=== PATIENT | female | born 1945 | race Caucasian/White ===

== ENCOUNTER 2020-11-21 09:21 | Inpatient (IN) | payer MEDICARE, OTHER ==
[~2020-11-21] VITALS: Ht 154.9 cm; Wt 95.8 kg
[2020-11-21] VITALS (13 sets, daily range): BP systolic 119–194; BP diastolic 60–124
[2020-11-21] MEDS ORDERED: diphenhydrAMINE 25mg capsule PO PRN (09:45)
[2020-11-21 10:24] LABS: BASOPHILS % (AUTO) 0.6 % (0-1); EOSINOPHILS # (AUTO) 0.1 X10'3 (0-0.9); EOSINOPHILS % (AUTO) 2.6 % (0-6); HEMATOCRIT 34.5 % (35.0-45.0); HEMOGLOBIN 11.5 g/dl (12.0-16.0); LYMPHOCYTES # (AUTO) 0.8 X10'3 (1.1-4.8); LYMPHOCYTES % (AUTO) 21.9 % (21-51); MEAN CORPUSCULAR HEMOGLOBIN 30.7 PG (27.0-31.0); MEAN CORPUSCULAR HGB CONC 33.2 g/dL (33.0-36.5); MEAN CORPUSCULAR VOLUME 92.4 FL (78-98); MEAN PLATELET VOLUME 9.2 FL (7.4-10.4); MONOCYTES # (AUTO) 0.4 X10'3 (0-0.9); MONOCYTES % (AUTO) 10.6 % (2-12); NEUTROPHILS # (AUTO) 2.4 X10'3 (1.8-7.7); NEUTROPHILS % (AUTO) 64.3 % (42-75); PLATELET COUNT 144 X10'3 (140-440); RED BLOOD COUNT 3.74 X10'6 (4.20-5.60); RED CELL DISTRIBUTION WIDTH 15.9 % (11.5-14.5); WHITE BLOOD COUNT 3.7 X10'3 (4.5-11.0)
[2020-11-21] MEDS: normal saline 1,000 ML IV SCH ×2 (10:29→19:45)
[2020-11-21] MEDS ORDERED: ISOS60TA71 PO (10:36)
[2020-11-21] MEDS ORDERED: ASPI-1265 PO (10:36)
[2020-11-21] MEDS ORDERED: SODI650T29 PO (10:36)
[2020-11-21] MEDS ORDERED: LISI40TA13 PO (10:36)
[2020-11-21] MEDS ORDERED: NITR0.4T51 SL (10:36)
[2020-11-21] MEDS ORDERED: METO50TA7 PO (10:36)
[2020-11-21] MEDS ORDERED: FURO-150 PO (10:36)
[2020-11-21] MEDS ORDERED: HYDR200T84 PO (10:36)
[2020-11-21] MEDS ORDERED: LIDO700A32 TOP (10:36)
[2020-11-21] MEDS ORDERED: ADAL40PE SUBCUT (10:36)
[2020-11-21] MEDS ORDERED: ATOR40TA PO (10:36)
[2020-11-21] MEDS ORDERED: OMEP40CA21 PO (10:36)
[2020-11-21 10:37] LABS: ALBUMIN 3.6 G/DL (3.4-5.0); ANION GAP 8 (8-16); BLOOD UREA NITROGEN 23 MG/DL (7-18); BUN/CREATININE RATIO 17.2 (6.6-38.0); CHLORIDE 107 MMOL/L (99-107); CREATININE 1.34 MG/DL (0.40-0.90); GLUCOSE 109 MG/DL (70-104); POTASSIUM 4.8 MMOL/L (3.5-5.1); SODIUM 142 MMOL/L (135-145); eGFR 39 ML/MIN
[2020-11-21] MEDS ORDERED: fentaNYL/PF 50MCG/1 ML 2ML syringe ONE (12:20)
[2020-11-21] MEDS ORDERED: midazolam 1 mg/ML 2ml injection ONE ×2 (12:20→13:16)
[2020-11-21] MEDS ORDERED: proCHLORperazine 10 MG/2 ml inj ONE (12:20)
[2020-11-21] MEDS ORDERED: LIDOcaine 1% (10mg/ml)w/preservative injection 20ml MDV ONE (12:20)
[2020-11-21] MEDS ORDERED: iohexol 350 MG/1 ML 200ml bottle ONE (12:21)
[2020-11-21] MEDS ORDERED: iohexol 350 MG/ML 50ML vial IV ONE (12:21)
[2020-11-21] MEDS ORDERED: heparin 1,000unit/ml 10ml vial 10 ML ONE (12:21)
[2020-11-21] MEDS ORDERED: sodium bicarbonate (8.4%) inj. 150 ML in dextrose 5%-water 1,000 ML IV ONE (12:30)
[2020-11-21] MEDS ORDERED: clopidogrel 300mg tablet ONE (14:06)
[2020-11-21] MEDS ORDERED: HYDROcodone/acetaminophen 5mg/325mg tablet PO PRN (14:40)
[2020-11-21] MEDS ORDERED: HYDROcodone/acetaminophen 10/325mg tab PO PRN (14:40)
[2020-11-21] MEDS ORDERED: proCHLORperazine 10 MG/2 ml inj IV PRN (14:40)
[2020-11-21] MEDS ORDERED: ondansetron/PF 4mg/2ml inj IV PRN (14:40)
[2020-11-21] MEDS ORDERED: acetaminophen 325mg tablet PO PRN (14:40)
--- NOTE | 2020-11-21 16:00 | NUR ---
Called Dr. Camacho regarding patient's increase BP and HR. Most recent VS 194/104, HR 99. Received order for clonidine 0.2mg PO once.
[2020-11-21] MEDS ORDERED: cloNIDine 0.1 mg tablet PO ONE (16:15)
[2020-11-21] MEDS ORDERED: furosemide 20 MG/2 ML vial IV ONE (16:50)
[2020-11-21] MEDS ORDERED: nitroGLYCERIN 0.4mg SUBLingual tab SL PRN ×2 (16:50→22:40)
[2020-11-21] MEDS ORDERED: nitroGLYCERIN 0.4mg SUBLingual tab SL ONE (16:50)
[2020-11-21] MEDS ORDERED: furosemide 40mg/4ml inj ONE (16:51)
--- NOTE | 2020-11-21 17:00 | NUR ---
Checked on patient at 1630. At this time, Patient's RR in the 40's, BP 182/124, HR 102, diaphoretic, c/o sternal chest pain, lung sounds wheezy. Right groin procedure site CDI, no bleeding/hematoma. Femstop in place. Rapid response called, EKG taken. Blood glucose 175. WRAPPER SIZER, RT and nursing supervisor pumping at rapid response. Called Dr. Camacho and he arrived at 1650. Orders received for NTG and 20mg IV lasix. At 1655, BP 171/99, pt still c/o of some sternal chest pain. Another NTG given per Dr. Camacho. Orders to admit to ACCE.
--- NOTE | 2020-11-21 17:00 | NUR ---
Patient in room . I have received report from peñashort stay rn and had the opportunity to ask questions and assume patient care.
--- NOTE | 2020-11-21 17:15 | NUR ---
Report called to Renetta CAVAZOS. All questions answered. Patient taken up to ACCE 309. All belongings with patient on transfer. Tavo (patient's son) called and given update.
[2020-11-21] MEDS ORDERED: DOBUTamine-DoBUTrex 500mg/D5W 250 ML IV SCH (17:30)
--- NOTE | 2020-11-21 17:30 | NUR ---
received pt into room 309, oriented to surroundings, femstop in place to right groin no bleeding noted, pedal pulses present, bp=712/70 ,heart rate70, pt denies pain, using bedpan, call angelo in hand, pt aware need to lie flat until 7 pm
[2020-11-21] MEDS ORDERED: magnesium hydroxide 30ml (MOM) UD suspension PO PRN (18:05)
--- NOTE | 2020-11-21 18:15 | NUR ---
Patient in room MED 309. I have received report from DIRK Jackson and had the opportunity to ask questions and assume patient care.
--- NOTE | 2020-11-21 18:16 | NUR ---
Problems reprioritized. Patient report given, questions answered & plan of care reviewed with .katarzyna hercules
[2020-11-21] MEDS ORDERED: lisinopril 20mg tablet PO SCH (20:00)
[2020-11-21] MEDS ORDERED: metoprolol tartrate 25mg tablet PO SCH (20:00)
[2020-11-21] MEDS: aspirin 81mg tablet.DR PO SCH (21:05)
[2020-11-21] MEDS: docusate sod 100mg capsule PO SCH (21:06)
[2020-11-21] MEDS: enoxaparin 30mg/0.3ml syringe SQ SCH (21:08)
[2020-11-21] MEDS ORDERED: ADALIMUMAB 40 MG/0.8 ML SQ SCH (22:40)
[2020-11-22] VITALS: BP 159/66
[2020-11-22 02:00] VITALS: BP 120/45
[2020-11-22] MEDS: normal saline 1,000 ML IV SCH (05:45)
[2020-11-22 06:00] VITALS: BP 132/60
--- NOTE | 2020-11-22 06:20 | NUR ---
Patient in room MED 309. I have received report from DIRK FELTON and had the opportunity to ask questions and assume patient care.
[2020-11-22] MEDS ORDERED: pantoprazole 40mg Tablet.DR PO SCH (07:30)
[2020-11-22] MEDS ORDERED: LIDOcaine 5% patch TP SCH (08:00)
[2020-11-22] MEDS ORDERED: clopidogrel 75mg tablet PO SCH (08:00)
[2020-11-22] MEDS ORDERED: aspirin 81mg tab.chew PO SCH (08:00)
[2020-11-22] MEDS ORDERED: isosorbide mononitrate 30mg tab.SR.24H PO SCH (08:00)
[2020-11-22] MEDS ORDERED: atorvastatin 20mg tablet PO SCH (08:00)
[2020-11-22] MEDS: docusate sod 100mg capsule PO SCH (08:00)
[2020-11-22] MEDS ORDERED: lisinopril 20mg tablet PO SCH (08:00)
[2020-11-22] MEDS ORDERED: sodium bicarbonate 650mg tablet PO SCH (08:00)
[2020-11-22] MEDS ORDERED: hydroxychloroquine 200mg tablet PO SCH (08:00)
[2020-11-22] MEDS ORDERED: nitroGLYCERIN 0.2mg/hour patch TD SCH (08:00)
[2020-11-22] MEDS ORDERED: furosemide 20MG tablet PO SCH (08:00)
[2020-11-22] MEDS ORDERED: metoprolol succinate 25mg (24-HOUR) SR. Tablet PO SCH (08:00)
[2020-11-22] MEDS: aspirin 81mg tablet.DR PO SCH (08:29)
[2020-11-22] MEDS: enoxaparin 30mg/0.3ml syringe SQ SCH (08:31)
[2020-11-22 11:00] VITALS: BP 128/68
[2020-11-22] MEDS ORDERED: CLOP75TA15 PO (11:35)
--- NOTE | 2020-11-22 13:15 | NUR ---
REVIEWED ALL DISCHARGE INSTRUCTIONS,INCLUDING NEED TO F/U WITH DR. LEHMAN IN 1 WEEK, PRESCRIPTION CONFIRMED WITH [facility] [place] FOR PLAVIX, ALSO CONFIRMED HOME LASIX DOSE IS 20 MG PO 3X/WK , NOT TID DAILY, DISCHARGE INSTRUCTIONS CORRECTED,SL DC'D LFA, SITE CLEAR. PT DC'D VIA W/C WITH ALL BELONGINGS
== END 2020-11-22 13:18 | disposition home or self-care (01) | DRG 246 ==
LOC: SSTAY O 09:21 → MED 3N 14:00
PROVIDERS: ADMIT Internal Medicine Cardiovascular Disease; ATTEND Internal Medicine Cardiovascular Disease
PROC: 4A023N7 Measurement of Cardiac Sampling and Pressure, Left Heart, Percutaneous Approach (ICD-10-PCS; principal; 2020-11-21)
PROC: 027135Z Dilation of Coronary Artery, Two Arteries with Two Drug-eluting Intraluminal Devices, Percutaneous Approach (ICD-10-PCS; 2020-11-21)
PROC: 02703ZZ Dilation of Coronary Artery, One Artery, Percutaneous Approach (ICD-10-PCS; 2020-11-21)
PROC: B2111ZZ Fluoroscopy of Multiple Coronary Arteries using Low Osmolar Contrast (ICD-10-PCS; 2020-11-21)
PROC: B2151ZZ Fluoroscopy of Left Heart using Low Osmolar Contrast (ICD-10-PCS; 2020-11-21)
DX: I25.10 Atherosclerotic heart disease of native coronary artery without angina pectoris (principal); I50.23 Acute on chronic systolic (congestive) heart failure
CPT/HCPCS: 92920; 93458; C9600; C9601; 36415; 80048; 82948; 83735; 85025; 85610; 93005; 94799; 99152; 99153; A4620; A6258; C1725; C1751; C1760; C1769; C1874; C1894; G0378; J0780; J1250; J1644; J1650; J1940; J2001; J2250; J3010; J7030; Q0163; Q9967

== ENCOUNTER 2020-12-02 06:14 | Inpatient (IN) | payer MEDICARE, OTHER ==
[~2020-12-02] VITALS: Ht 154.9 cm; Wt 94.3 kg
[~2020-12-02 06:14] MED LIST: ADAL40PE SUBCUT; ASPI-1265 PO; ATOR40TA PO; CLOP75TA15 PO; FURO-150 PO; HYDR200T84 PO; ISOS60TA71 PO; LIDO700A32 TOP; LISI40TA13 PO; METO50TA7 PO; NITR0.4T51 SL; OMEP40CA21 PO; SODI650T29 PO
[2020-12-02] MEDS ORDERED: normal saline 1,000 ML IV SCH (06:40)
[2020-12-02] MEDS ORDERED: diphenhydrAMINE 25mg capsule PO PRN (06:40)
[2020-12-02 07:04] LABS: BASOPHILS % (AUTO) 0.8 % (0-1); EOSINOPHILS # (AUTO) 0.1 X10'3 (0-0.9); EOSINOPHILS % (AUTO) 1.4 % (0-6); HEMATOCRIT 35.7 % (35.0-45.0); LYMPHOCYTES # (AUTO) 0.7 X10'3 (1.1-4.8); LYMPHOCYTES % (AUTO) 15.8 % (21-51); MEAN CORPUSCULAR HEMOGLOBIN 31.1 PG (27.0-31.0); MEAN CORPUSCULAR HGB CONC 33.7 g/dL (33.0-36.5); MEAN CORPUSCULAR VOLUME 92.4 FL (78-98); MEAN PLATELET VOLUME 8.9 FL (7.4-10.4); MONOCYTES # (AUTO) 0.4 X10'3 (0-0.9); MONOCYTES % (AUTO) 8.9 % (2-12); NEUTROPHILS # (AUTO) 3.4 X10'3 (1.8-7.7); NEUTROPHILS % (AUTO) 73.1 % (42-75); PLATELET COUNT 177 X10'3 (140-440); RED BLOOD COUNT 3.87 X10'6 (4.20-5.60); RED CELL DISTRIBUTION WIDTH 15.6 % (11.5-14.5); WHITE BLOOD COUNT 4.7 X10'3 (4.5-11.0)
[2020-12-02] MEDS ORDERED: CALC0.2511 PO (07:28)
[2020-12-02] MEDS ORDERED: CLOP75TA33 PO (07:28)
[2020-12-02 07:39] VITALS: BP 142/61
[2020-12-02 07:45] LABS: ALBUMIN 3.8 G/DL (3.4-5.0); ANION GAP 12 (8-16); BLOOD UREA NITROGEN 23 MG/DL (7-18); BUN/CREATININE RATIO 16.9 (6.6-38.0); CALCIUM 8.8 MG/DL (8.5-10.1); CHLORIDE 105 MMOL/L (99-107); CREATININE 1.36 MG/DL (0.40-0.90); GLUCOSE 117 MG/DL (70-104); MAGNESIUM 1.9 MG/DL (1.5-2.4); POTASSIUM 4.2 MMOL/L (3.5-5.1); SODIUM 141 MMOL/L (135-145); TOTAL CARBON DIOXIDE 24.5 MMOL/L (24-32); eGFR 38 ML/MIN
[2020-12-02] MEDS ORDERED: nitroGLYCERIN-Tridil 50MG/D5W 250 ML IV ONE (11:44)
[2020-12-02] MEDS ORDERED: dextrose 5% water 500ml 500 ML ONE (11:45)
[2020-12-02] MEDS ORDERED: heparin 1,000unit/ml 10ml vial 10 ML ONE ×2 (11:45→12:39)
[2020-12-02] MEDS ORDERED: verapamil 2.5 mg/ml inj IV ONE (11:45)
[2020-12-02] MEDS ORDERED: heparin 1,000 UNITS/NS 500ml 500 ML ONE ×3 (11:52→13:25)
[2020-12-02] MEDS ORDERED: iohexol 350 MG/1 ML 200ml bottle ONE (11:52)
[2020-12-02] MEDS ORDERED: LIDOcaine 1% (10mg/ml)w/preservative injection 20ml MDV ONE ×2 (11:53→12:47)
[2020-12-02] MEDS ORDERED: fentaNYL/PF 50MCG/1 ML 2ML syringe ONE (11:57)
[2020-12-02] MEDS ORDERED: midazolam 1 mg/ML 2ml injection ONE (12:46)
[2020-12-02] MEDS ORDERED: iohexol 350 MG/ML 50ML vial IV ONE ×2 (14:10→14:24)
[2020-12-02] MEDS ORDERED: iohexol 350MG/ML 100ml bottle IV ONE (14:23)
[2020-12-02] MEDS ORDERED: clopidogrel 300mg tablet ONE (15:34)
[2020-12-02] MEDS ORDERED: cloNIDine 0.1 mg tablet PO PRN (16:05)
[2020-12-02] MEDS ORDERED: normal saline 1000ml 1,000 ML IV SCH (16:05)
[2020-12-02] MEDS ORDERED: ondansetron/PF 4mg/2ml inj IV PRN (16:05)
[2020-12-02] MEDS ORDERED: acetaminophen 325mg tablet PO PRN (16:10)
[2020-12-02] MEDS ORDERED: HYDROcodone/acetaminophen 5mg/325mg tablet PO PRN (16:10)
[2020-12-02] MEDS ORDERED: furosemide 40mg/4ml inj IV ONE (16:10)
[2020-12-02] MEDS ORDERED: proCHLORperazine 10 MG/2 ml inj IV PRN (16:10)
[2020-12-02 16:37] VITALS: BP 148/62
[2020-12-02] MEDS: normal saline 1000ml 1,000 ML IV SCH ×2 (16:48→21:40)
[2020-12-02] MEDS ORDERED: nitroGLYCERIN 0.4mg SUBLingual tab SL PRN (16:55)
[2020-12-02 18:00] VITALS: BP 129/61
--- NOTE | 2020-12-02 18:13 | NUR ---
Patient in room MED 315. I have received report from BARRIE RN and had the opportunity to ask questions and assume patient care.
[2020-12-02] MEDS: HYDROcodone/acetaminophen 10/325mg tab PO PRN ×2 (18:20→23:13)
[2020-12-02] MEDS: metoprolol succinate 25mg (24-HOUR) SR. Tablet PO SCH (19:25)
[2020-12-02] MEDS: lisinopril 20mg tablet PO SCH (19:26)
[2020-12-02] MEDS: sodium bicarbonate 650mg tablet PO SCH (19:26)
--- NOTE | 2020-12-02 19:31 | NUR ---
CALLING DR. LEHMAN REGARDING PAIN MANAGEMENT FOR POST OP-PAIN 03/19, PATIENT NONCOMPLIANT WITH LAYING FLAT DUE TO PAIN LEVEL. LEELA Addendum: 12/02/20 at 1935 by Henny Chandler RN ZULLY CALLED BACK AND STATED TO RESUME TRAMADOL 50 MG AND LIDOCAINE PATCHES FOR PAIN.
[2020-12-02] MEDS: LIDOcaine 5% patch TP SCH (19:45)
[2020-12-02] MEDS: traMADol 50MG tablet PO SCH (19:52)
[2020-12-02 22:00] VITALS: BP 107/47
--- NOTE | 2020-12-02 22:00 | NUR ---
250 ML BOLUS GIVEN FOR ART LINE SBP AT 70. CHOLME RN
[2020-12-03 02:00] VITALS: BP 116/50
[2020-12-03] MEDS: normal saline 1000ml 1,000 ML IV SCH ×5 (02:40→22:40)
[2020-12-03] MEDS: HYDROcodone/acetaminophen 10/325mg tab PO PRN ×2 (03:42→09:51)
[2020-12-03 06:00] VITALS: BP 114/42
--- NOTE | 2020-12-03 06:19 | NUR ---
Problems reprioritized. Patient report given, questions answered & plan of care reviewed with NAUN CAVAZOS.
[2020-12-03] MEDS: hydroxychloroquine 200mg tablet PO SCH ×2 (08:00→08:12)
[2020-12-03] MEDS ORDERED: LIDOcaine 5% patch TP SCH (08:00)
[2020-12-03] MEDS: lisinopril 20mg tablet PO SCH ×2 (08:00→19:53)
[2020-12-03] MEDS ORDERED: LIDOcaine 1% (10mg/ml) 2ml vial ONE (08:00)
[2020-12-03] MEDS: sodium bicarbonate 650mg tablet PO SCH ×2 (08:01→19:52)
[2020-12-03] MEDS: isosorbide mononitrate 30mg tab.SR.24H PO SCH (08:01)
[2020-12-03] MEDS ORDERED: LIDOcaine 1% 30ml preserv. free vial IJ STA (08:01)
[2020-12-03] MEDS: calcitriol 0.25mcg capsule PO SCH (08:01)
[2020-12-03] MEDS: traMADol 50MG tablet PO SCH (08:01)
[2020-12-03] MEDS: pantoprazole 40mg Tablet.DR PO SCH (08:02)
[2020-12-03] MEDS: metoprolol succinate 25mg (24-HOUR) SR. Tablet PO SCH ×2 (08:02→19:53)
[2020-12-03] MEDS: aspirin 81mg tab.chew PO SCH (08:02)
[2020-12-03] MEDS: atorvastatin 20mg tablet PO SCH (08:02)
[2020-12-03] MEDS: clopidogrel 75mg tablet PO SCH (08:11)
[2020-12-03 12:49] VITALS: BP 107/46
[2020-12-03 17:51] VITALS: BP 113/39
[2020-12-03 18:00] VITALS: BP 118/43
--- NOTE | 2020-12-03 18:28 | NUR ---
Patient in room MED 315. I have received report from NAUN CAVAZOS and had the opportunity to ask questions and assume patient care.
[2020-12-03] MEDS: LIDOcaine 5% patch TP SCH (19:47)
[2020-12-03 22:00] VITALS: BP 108/42
[2020-12-04 02:00] VITALS: BP 105/41
--- NOTE | 2020-12-04 02:14 | NUR ---
IV INFILTRATED, NEEDED TO REESTABLISH ACCESS-NEW IV STARTED NOW LEFT FOREARM, RESUMING BLOOD TRANSFUSION. LEELA CAVAZOS Addendum: 12/04/20 at 0216 by Henny Chandler RN WRONG PATIENT, DISREGARD, LEELA CAVAZOS
[2020-12-04] MEDS: normal saline 1000ml 1,000 ML IV SCH ×2 (03:40→08:40)
[2020-12-04 06:00] VITALS: BP 125/43
--- NOTE | 2020-12-04 06:03 | NUR ---
Problems reprioritized. Patient report given, questions answered & plan of care reviewed with THOM CAVAZOS.
--- NOTE | 2020-12-04 06:29 | NUR ---
Patient in room MED 315. I have received report from DIRK NORIEGA and had the opportunity to ask questions and assume patient care.
[2020-12-04] MEDS: pantoprazole 40mg Tablet.DR PO SCH (08:44)
[2020-12-04] MEDS: atorvastatin 20mg tablet PO SCH (08:44)
[2020-12-04] MEDS: lisinopril 20mg tablet PO SCH (08:47)
[2020-12-04] MEDS: traMADol 50MG tablet PO SCH (08:48)
[2020-12-04] MEDS: aspirin 81mg tab.chew PO SCH (08:48)
[2020-12-04] MEDS: sodium bicarbonate 650mg tablet PO SCH (08:49)
[2020-12-04] MEDS: metoprolol succinate 25mg (24-HOUR) SR. Tablet PO SCH (08:49)
[2020-12-04] MEDS: clopidogrel 75mg tablet PO SCH (08:49)
[2020-12-04] MEDS: calcitriol 0.25mcg capsule PO SCH (08:49)
[2020-12-04] MEDS: hydroxychloroquine 200mg tablet PO SCH (08:49)
[2020-12-04] MEDS: isosorbide mononitrate 30mg tab.SR.24H PO SCH (08:50)
[2020-12-04 11:00] VITALS: BP 107/48
[2020-12-04 15:00] VITALS: BP 110/39
--- NOTE | 2020-12-04 17:00 | NUR ---
dr. isidro contacted, orders taken for discharge,continue all home meds....he stated he will call her [facility] for f/u appt
--- NOTE | 2020-12-04 18:00 | NUR ---
reviewed all discharge instructions with pt and daughter, including post angiogram precautions, SL dc'd from LFA, site clear, drsg carefully changed to left groin site and replace with clean 2x2, and large tegaderm, right groin site dressing dry and intact, duoderm dressing applied to quarter-sized blister to low back. pt aware dr isidro will call [facility] to establish f/u appt, pt dc'd home via w/c with all belongings
--- NOTE | 2020-12-04 18:14 | NUR ---
Patient in room MED 315. I have received report from THOM CAVAZOS and had the opportunity to ask questions and assume patient care.
[2020-12-05] MEDS ORDERED: furosemide 20MG tablet PO SCH (08:00)
[2020-12-12] MEDS ORDERED: ADALIMUMAB SQ SCH (08:00)
== END 2020-12-04 18:30 | disposition home or self-care (01) | DRG 215 ==
LOC: SSTAY O 06:14 → EDSTATUS 08:00 → MED 3N 15:49
PROVIDERS: ADMIT Internal Medicine Cardiovascular Disease; ATTEND Internal Medicine Cardiovascular Disease
PROC: 4A023N7 Measurement of Cardiac Sampling and Pressure, Left Heart, Percutaneous Approach (ICD-10-PCS; principal; 2020-12-02)
PROC: 02HA3RJ Insertion of Short-term External Heart Assist System into Heart, Intraoperative, Percutaneous Approach (ICD-10-PCS; 2020-12-02)
PROC: 027237Z Dilation of Coronary Artery, Three Arteries with Four or More Drug-eluting Intraluminal Devices, Percutaneous Approach (ICD-10-PCS; 2020-12-02)
PROC: 02C03ZZ Extirpation of Matter from Coronary Artery, One Artery, Percutaneous Approach (ICD-10-PCS; 2020-12-02)
PROC: 5A0221D Assistance with Cardiac Output using Impeller Pump, Continuous (ICD-10-PCS; 2020-12-02)
PROC: B2111ZZ Fluoroscopy of Multiple Coronary Arteries using Low Osmolar Contrast (ICD-10-PCS; 2020-12-02)
DX: I25.118 Atherosclerotic heart disease of native coronary artery with other forms of angina pectoris (principal)
CPT/HCPCS: 33990; 33992; C9600; C9601; C9602; 36415; 80048; 83735; 85025; 85610; 87081; 93005; 99152; 99153; A4620; A6258; A6449; C1724; C1725; C1751; C1760; C1769; C1874; C1892; C1894; G0378; J1644; J1940; J2001; J2250; J3010; J3490; J7030; J7040; J7060; Q0163; Q9967

== ENCOUNTER 2021-08-25 10:01 | Inpatient (IN) | payer MEDICARE, OTHER ==
[~2021-08-25] VITALS: Ht 152.4 cm; Wt 96.4 kg
[~2021-08-25 10:01] MED LIST changes: +AMIO200T61 PO; +APIX2.5T PO; -ASPI-1265 PO; +CALC0.2511 PO; +CEPH250T PO; +CLON0.1T2 PO; -CLOP75TA15 PO; -LIDO700A32 TOP; -OMEP40CA21 PO; +PANT40TA54 PO; -SODI650T29 PO; +TICA90TA PO; +TRAM50TA2 PO
[2021-08-25] MEDS ORDERED: vancomycin/NS 1 GM ADD-VANTAGE 250 ML IV ONE (11:00)
[2021-08-25] MEDS ORDERED: normal saline 1000ML IV soln IVB ONE (11:00)
[2021-08-25] MEDS ORDERED: piperacillin/tazo 3.375gm/50ml 50 ML IV ONE (11:00)
--- NOTE | 2021-08-25 11:00 | NUR ---
A pleasant 85 year old lady transferred into the unit at about 2200. Alert and oriented x3, in no obvious distress.Patient draining profuse serosanguineous fluids from a right groin incision. Will monitor patient.
[2021-08-25 11:24] LABS: BASOPHILS % (AUTO) 0.1 % (0-1); EOSINOPHILS % (AUTO) 0 % (0-6); HEMOGLOBIN 10.2 g/dl (12.0-16.0); LYMPHOCYTES # (AUTO) 0.1 X10'3 (1.1-4.8); LYMPHOCYTES % (AUTO) 1.1 % (21-51); MEAN CORPUSCULAR HEMOGLOBIN 30.3 PG (27.0-31.0); MEAN CORPUSCULAR HGB CONC 32.8 g/dL (33.0-36.5); MEAN CORPUSCULAR VOLUME 92.4 FL (78-98); MEAN PLATELET VOLUME 8.7 FL (7.4-10.4); MONOCYTES # (AUTO) 0.3 X10'3 (0-0.9); MONOCYTES % (AUTO) 2.3 % (2-12); NEUTROPHILS # (AUTO) 12.9 X10'3 (1.8-7.7); NEUTROPHILS % (AUTO) 96.5 % (42-75); PLATELET COUNT 176 X10'3 (140-440); RED BLOOD COUNT 3.35 X10'6 (4.20-5.60); RED CELL DISTRIBUTION WIDTH 19.5 % (11.5-14.5); WHITE BLOOD COUNT 13.4 X10'3 (4.5-11.0)
[2021-08-25 11:38] LABS: ALANINE AMINOTRANSFERASE 12 U/L (12-78); ALBUMIN 2.1 G/DL (3.4-5.0); ALBUMIN/GLOBULIN RATIO 0.6 (1.1-1.5); ALKALINE PHOSPHATASE 143 IU/L (46-116); ASPARTATE AMINO TRANSFERASE 25 U/L (10-37); BILIRUBIN,TOTAL 1.5 MG/DL (0.1-1.0); BLOOD UREA NITROGEN 85 MG/DL (7-18); BUN/CREATININE RATIO 33.1 (6.6-38.0); CALCIUM 8.7 MG/DL (8.5-10.1); CHLORIDE 98 MMOL/L (99-107); CREATININE 2.57 MG/DL (0.40-0.90); GLUCOSE 119 MG/DL (70-104); POTASSIUM 3.5 MMOL/L (3.5-5.1); SODIUM 133 MMOL/L (135-145); TOTAL PROTEIN 5.9 G/DL (6.4-8.2); eGFR 18 ML/MIN
[2021-08-25 11:44] LABS: ANION GAP 12 (8-16); TOTAL CARBON DIOXIDE 23.1 MMOL/L (24-32)
[2021-08-25 11:53] LABS: ANISOCYTOSIS 2+; ELLIPTOCYTES FEW; PLATELET ESTIMATE NORMAL; POLYCHROMASIA FEW
[2021-08-25 11:54] LABS: BURR CELLS 1+
--- NOTE | 2021-08-25 12:19 | NUR ---
back from CT. no issues.
[2021-08-25] MEDS ORDERED: LEVO500T90 PO (13:23)
[2021-08-25] MEDS ORDERED: OMEP20TA5 PO (13:23)
[2021-08-25] MEDS ORDERED: PANT40TA54 PO (13:26)
[2021-08-25] MEDS ORDERED: VITA-268 PO (13:26)
[2021-08-25] MEDS ORDERED: LISI20TA28 PO (13:26)
[2021-08-25] MEDS ORDERED: MULT-1074 PO (13:26)
[2021-08-25] MEDS ORDERED: traMADol 50MG tablet PO PRN (14:35)
[2021-08-25] MEDS ORDERED: morphine 2 MG/ML inj. syringe IV PRN ×2 (14:45)
[2021-08-25] MEDS ORDERED: HYDROcodone/acetaminophen 10/325mg tab PO PRN (14:45)
[2021-08-25] MEDS ORDERED: magnesium Cl slow-release 64mg tablet PO PRN (14:45)
[2021-08-25] MEDS ORDERED: magnesium hydroxide 30ml (MOM) UD suspension PO PRN (14:45)
[2021-08-25] MEDS ORDERED: acetaminophen 325mg tablet PO PRN ×2 (14:45)
[2021-08-25] MEDS ORDERED: potassium CL 10mEq/100ml bag 100 ML IV PRN (14:45)
[2021-08-25] MEDS ORDERED: magnesium 4gm in 100ml NS 100 ML IV PRN (14:45)
[2021-08-25] MEDS ORDERED: diphenhydrAMINE 25mg capsule PO PRN (14:45)
[2021-08-25] MEDS ORDERED: acetaminophen 650mg rectal suppository RC PRN (14:45)
[2021-08-25] MEDS ORDERED: bisacodyl 10mg suppository rectal RC PRN (14:45)
[2021-08-25] MEDS ORDERED: potassium Cl 20 mEq SR tablet PO PRN ×2 (14:45)
[2021-08-25] MEDS ORDERED: magnesium 2GM in 50ml NS 50 ML IV PRN (14:45)
[2021-08-25] MEDS ORDERED: NS IV PRN (15:25)
[2021-08-25] MEDS ORDERED: VANCOMYCIN IV PRN (15:25)
[2021-08-25] MEDS: normal saline 1000ml 1,000 ML IV SCH (15:39)
[2021-08-25] MEDS: piperacillin/tazo 3.375gm/50ml 50 ML IV SCH (16:08)
--- NOTE | 2021-08-25 18:22 | NUR ---
bedside report to katarzyna cardoza
[2021-08-25] MEDS: ondansetron/PF 4mg/2ml inj IV PRN (18:27)
[2021-08-25] MEDS: K and/or MAG REPLACEMENT MC SCH (18:59)
[2021-08-25] MEDS: pantoprazole 40mg Tablet.DR PO SCH (19:11)
[2021-08-25] MEDS: docusate sod 100mg capsule PO SCH (19:11)
[2021-08-25] MEDS: cloNIDine 0.1 mg tablet PO SCH (19:11)
[2021-08-25] MEDS: ticagrelor 90mg tablet PO SCH (19:11)
[2021-08-25] MEDS: metoprolol succinate 25mg (24-HOUR) SR. Tablet PO SCH (19:11)
--- NOTE | 2021-08-25 19:38 | NUR ---
Vasile [phone] (son)
[2021-08-26] VITALS (27 sets, daily range): BP systolic 76–115; BP diastolic 41–70
[2021-08-26] MEDS: normal saline 1000ml 1,000 ML IV SCH ×3 (01:22→20:45)
[2021-08-26] MEDS: piperacillin/tazo 3.375gm/50ml 50 ML IV SCH ×3 (01:33→20:35)
[2021-08-26] MEDS: ondansetron/PF 4mg/2ml inj IV PRN (01:43)
[2021-08-26 07:01] LABS: BASOPHILS % (AUTO) 0.2 % (0-1); EOSINOPHILS % (AUTO) 0 % (0-6); HEMATOCRIT 25.9 % (35.0-45.0); HEMOGLOBIN 8.7 g/dl (12.0-16.0); LYMPHOCYTES # (AUTO) 0.2 X10'3 (1.1-4.8); LYMPHOCYTES % (AUTO) 2.1 % (21-51); MEAN CORPUSCULAR HEMOGLOBIN 31.2 PG (27.0-31.0); MEAN CORPUSCULAR HGB CONC 33.5 g/dL (33.0-36.5); MEAN CORPUSCULAR VOLUME 93.3 FL (78-98); MEAN PLATELET VOLUME 8.5 FL (7.4-10.4); MONOCYTES # (AUTO) 0.2 X10'3 (0-0.9); MONOCYTES % (AUTO) 2.8 % (2-12); NEUTROPHILS # (AUTO) 8.2 X10'3 (1.8-7.7); NEUTROPHILS % (AUTO) 94.9 % (42-75); PLATELET COUNT 146 X10'3 (140-440); RED BLOOD COUNT 2.77 X10'6 (4.20-5.60); RED CELL DISTRIBUTION WIDTH 20.2 % (11.5-14.5); WHITE BLOOD COUNT 8.6 X10'3 (4.5-11.0)
[2021-08-26 07:22] LABS: ALANINE AMINOTRANSFERASE 8 U/L (12-78); ALBUMIN 1.6 G/DL (3.4-5.0); ALBUMIN/GLOBULIN RATIO 0.5 (1.1-1.5); ALKALINE PHOSPHATASE 105 IU/L (46-116); ANION GAP 15 (8-16); ASPARTATE AMINO TRANSFERASE 19 U/L (10-37); BLOOD UREA NITROGEN 81 MG/DL (7-18); BUN/CREATININE RATIO 34.2 (6.6-38.0); CALCIUM 7.8 MG/DL (8.5-10.1); CHLORIDE 102 MMOL/L (99-107); CHOL/HDL RATIO 3.6 (0.00-4.99); CHOLESTEROL 50 MG/DL (0-200); CREATININE 2.37 MG/DL (0.40-0.90); GLUCOSE 101 MG/DL (70-104); HDL CHOLESTEROL 14 MG/DL (35-60); LDL CHOLESTEROL 21 MG/DL (50-100); PHOSPHORUS 5.2 MG/DL (2.3-4.5); POTASSIUM 3.7 MMOL/L (3.5-5.1); SODIUM 137 MMOL/L (135-145); TOTAL CARBON DIOXIDE 20.2 MMOL/L (24-32); TOTAL PROTEIN 4.9 G/DL (6.4-8.2); TRIGLYCERIDES 78 MG/DL (20-135); eGFR 20 ML/MIN
[2021-08-26] MEDS: multivitamins, therapeutics tablet PO SCH (07:57)
[2021-08-26] MEDS: furosemide 20MG tablet PO SCH (07:58)
[2021-08-26] MEDS: ticagrelor 90mg tablet PO SCH ×2 (07:58→20:34)
[2021-08-26] MEDS: amiodarone 200mg tablet PO SCH (07:58)
[2021-08-26] MEDS: pantoprazole 40mg Tablet.DR PO SCH ×2 (07:58→20:33)
[2021-08-26] MEDS: vitamin B comp w/Vit. C tab 1 TAB TABLET PO SCH (07:58)
[2021-08-26] MEDS: isosorbide mononitrate 30mg tab.SR.24H PO SCH (07:58)
[2021-08-26] MEDS: docusate sod 100mg capsule PO SCH ×2 (07:58→20:34)
[2021-08-26] MEDS: atorvastatin 20mg tablet PO SCH (07:58)
[2021-08-26] MEDS: lisinopril 20mg tablet PO SCH (07:59)
[2021-08-26] MEDS: cloNIDine 0.1 mg tablet PO SCH ×2 (07:59→20:00)
[2021-08-26] MEDS: metoprolol succinate 25mg (24-HOUR) SR. Tablet PO SCH ×2 (07:59→20:00)
[2021-08-26] MEDS: K and/or MAG REPLACEMENT MC SCH ×2 (08:00→20:00)
[2021-08-26 08:35] LABS: ACANTHOCYTES FEW; ANISOCYTOSIS 3+; BURR CELLS FEW; ELLIPTOCYTES FEW; PLATELET ESTIMATE NORMAL; TEAR DROP CELLS FEW
[2021-08-26] MEDS: hydroxychloroquine 200mg tablet PO SCH (09:12)
[2021-08-26] MEDS ORDERED: vancomycin 1000 MG in NS 250ml X 1 ER IV ONE (10:40)
--- NOTE | 2021-08-26 11:39 | NUR ---
Initial: Pt admit for surgical wound to right groin with infected fluid collections s/p recent cardiac catheterization. Pt currently on a heart healthy diet, documented with 50% PO intake first meal. Recommend diet liberalization to regular in view of lipid panel WNL with the exception of low LDL and HDL. Liberalizing diet will allow greater food variations to optimize PO intake. Pt receiving routine MVI which will assist with wound healing. LBM 08/24, receiving routine bowel care. Will continue to follow closely and make recommendations as appropriate pending trends in PO intake. Recommendations: 1) Liberalize to regular diet in view of lipid panel 2) Monitor need for ONS/additional protein 3) Continue routine MVI to assist with wound healing 4) Routine bowel care 5) Scaled weight this admit; weekly scaled weights thereafter Addendum: 08/26/21 at [address] Amended: Links added.
[2021-08-26] MEDS ORDERED: fentaNYL/PF 50MCG/1 ML 2ML syringe ONE (15:06)
[2021-08-26] MEDS ORDERED: midazolam 1 mg/ML 2ml injection ONE (15:06)
--- NOTE | 2021-08-26 18:16 | NUR ---
PAGER ID: [phone] MESSAGE: Doc, [id number] is hypotensive post IR procedure, last b/p . pls advice. Breana. DIRK
[2021-08-26] MEDS ORDERED: normal saline 1000ml 1,000 ML IV ONE (18:25)
[2021-08-27] VITALS (7 sets, daily range): BP systolic 89–112; BP diastolic 42–61
[2021-08-27] MEDS: ondansetron 4mg rapidly disintigrating tab PO PRN (03:28)
--- NOTE | 2021-08-27 04:20 | NUR ---
S/P IR Procedure with insertion of 3 JENNIFER drains.- On taking over at 1800, bp was 74/48. Doctor notified and a liter of N/S Bolus was ordered for the patient.patient remained asymptomatic , BP gradually came up and but remained low all through the shift ranging between 90 and 110 systolic.Complained of nausea and got PO zofran.Denies pain. Condition appears stable.
--- NOTE | 2021-08-27 06:14 | NUR ---
Problems reprioritized. Patient report given, questions answered & plan of care reviewed with [].
[2021-08-27] MEDS: VANCOMYCIN LEVEL IV SCH (06:45)
[2021-08-27 06:56] LABS: BASOPHILS % (AUTO) 0 % (0-1); EOSINOPHILS % (AUTO) 0.3 % (0-6); HEMATOCRIT 27.1 % (35.0-45.0); LYMPHOCYTES # (AUTO) 0.3 X10'3 (1.1-4.8); LYMPHOCYTES % (AUTO) 4.2 % (21-51); MEAN CORPUSCULAR HGB CONC 33.1 g/dL (33.0-36.5); MEAN CORPUSCULAR VOLUME 93.7 FL (78-98); MEAN PLATELET VOLUME 8.3 FL (7.4-10.4); MONOCYTES # (AUTO) 0.3 X10'3 (0-0.9); MONOCYTES % (AUTO) 4.2 % (2-12); NEUTROPHILS % (AUTO) 91.3 % (42-75); PLATELET COUNT 150 X10'3 (140-440); RED BLOOD COUNT 2.89 X10'6 (4.20-5.60); RED CELL DISTRIBUTION WIDTH 20.2 % (11.5-14.5); WHITE BLOOD COUNT 6.6 X10'3 (4.5-11.0)
[2021-08-27 07:35] LABS: ANISOCYTOSIS 3+; PLATELET ESTIMATE NORMAL
[2021-08-27 07:37] LABS: POIKILOCYTOSIS FEW
[2021-08-27] MEDS: piperacillin/tazo 3.375gm/50ml 50 ML IV SCH ×2 (07:40→20:16)
[2021-08-27] MEDS: normal saline 1000ml 1,000 ML IV SCH ×2 (07:40→16:05)
[2021-08-27] MEDS: vitamin B comp w/Vit. C tab 1 TAB TABLET PO SCH (07:41)
[2021-08-27] MEDS: HYDROcodone/acetaminophen 5mg/325mg tablet PO PRN (07:41)
[2021-08-27] MEDS: docusate sod 100mg capsule PO SCH ×2 (07:41→20:16)
[2021-08-27] MEDS: ticagrelor 90mg tablet PO SCH ×2 (07:41→20:16)
[2021-08-27] MEDS: amiodarone 200mg tablet PO SCH (07:41)
[2021-08-27] MEDS: hydroxychloroquine 200mg tablet PO SCH (07:41)
[2021-08-27 07:42] LABS: ALANINE AMINOTRANSFERASE 8 U/L (12-78); ALBUMIN 1.6 G/DL (3.4-5.0); ALBUMIN/GLOBULIN RATIO 0.5 (1.1-1.5); ALKALINE PHOSPHATASE 101 IU/L (46-116); ANION GAP 15 (8-16); ASPARTATE AMINO TRANSFERASE 20 U/L (10-37); BILIRUBIN,TOTAL 0.8 MG/DL (0.1-1.0); BLOOD UREA NITROGEN 84 MG/DL (7-18); BUN/CREATININE RATIO 33.5 (6.6-38.0); CALCIUM 7.5 MG/DL (8.5-10.1); CHLORIDE 105 MMOL/L (99-107); CREATININE 2.51 MG/DL (0.40-0.90); GLUCOSE 103 MG/DL (70-104); MAGNESIUM 2.1 MG/DL (1.5-2.4); PHOSPHORUS 5.2 MG/DL (2.3-4.5); POTASSIUM 3.7 MMOL/L (3.5-5.1); SODIUM 139 MMOL/L (135-145); TOTAL CARBON DIOXIDE 18.9 MMOL/L (24-32); TOTAL PROTEIN 4.9 G/DL (6.4-8.2); VANCOMYCIN,RANDOM 15.3 UG/ML; eGFR 19 ML/MIN
[2021-08-27] MEDS: metoprolol succinate 25mg (24-HOUR) SR. Tablet PO SCH ×2 (07:42→20:00)
[2021-08-27] MEDS: atorvastatin 20mg tablet PO SCH (07:42)
[2021-08-27] MEDS: pantoprazole 40mg Tablet.DR PO SCH ×2 (07:42→20:16)
[2021-08-27] MEDS: multivitamins, therapeutics tablet PO SCH (07:42)
[2021-08-27] MEDS: furosemide 20MG tablet PO SCH (07:42)
--- NOTE | 2021-08-27 07:47 | NUR ---
LOW BP BP medications held due to low BP will continue to monitor. [facility]
[2021-08-27] MEDS: isosorbide mononitrate 30mg tab.SR.24H PO SCH (08:00)
[2021-08-27] MEDS: K and/or MAG REPLACEMENT MC SCH ×2 (08:00→19:23)
[2021-08-27] MEDS: lisinopril 20mg tablet PO SCH (08:00)
[2021-08-27] MEDS: cloNIDine 0.1 mg tablet PO SCH ×2 (08:00→20:00)
--- NOTE | 2021-08-27 08:45 | NUR ---
LOW BP Dr. Saavedra verbal order to continue to hold clonidine, lisinopril, and isosorbide. [facility]
[2021-08-27] MEDS: mag hydrox/Alum hydrox/simeth 30ml oral suspension PO PRN ×2 (13:47→22:26)
--- NOTE | 2021-08-27 18:21 | NUR ---
Problems reprioritized. Patient report given, questions answered & plan of care reviewed with Mulu CAVAZOS.
--- NOTE | 2021-08-27 18:30 | NUR ---
Patient in room PCU 3016. I have received report from DIRK Moran and had the opportunity to ask questions and assume patient care.
--- NOTE | 2021-08-27 20:28 | NUR ---
Bp running low, now 99/43,, scheduled 1999 Bp Meds-Toprol XL and Clonidine not given. Pt is stable, asymptomatic. Will continue to monitor.
[2021-08-28 02:00] VITALS: BP 105/68
[2021-08-28] MEDS: normal saline 1000ml 1,000 ML IV SCH ×3 (02:55→22:45)
[2021-08-28] MEDS: VANCOMYCIN LEVEL IV SCH (03:25)
[2021-08-28] MEDS: ondansetron 4mg rapidly disintigrating tab PO PRN (03:39)
[2021-08-28 03:45] LABS: ALANINE AMINOTRANSFERASE 11 U/L (12-78); ALBUMIN 1.7 G/DL (3.4-5.0); ALBUMIN/GLOBULIN RATIO 0.5 (1.1-1.5); ALKALINE PHOSPHATASE 101 IU/L (46-116); ANION GAP 13 (8-16); ASPARTATE AMINO TRANSFERASE 20 U/L (10-37); BILIRUBIN,TOTAL 0.7 MG/DL (0.1-1.0); BLOOD UREA NITROGEN 85 MG/DL (7-18); BUN/CREATININE RATIO 33.6 (6.6-38.0); CALCIUM 7.5 MG/DL (8.5-10.1); CHLORIDE 106 MMOL/L (99-107); CREATININE 2.53 MG/DL (0.40-0.90); GLUCOSE 123 MG/DL (70-104); MAGNESIUM 2.1 MG/DL (1.5-2.4); PHOSPHORUS 4.3 MG/DL (2.3-4.5); POTASSIUM 3.6 MMOL/L (3.5-5.1); SODIUM 141 MMOL/L (135-145); TOTAL CARBON DIOXIDE 21.9 MMOL/L (24-32); TOTAL PROTEIN 5.3 G/DL (6.4-8.2); VANCOMYCIN,RANDOM 13.1 UG/ML; eGFR 19 ML/MIN
[2021-08-28 04:12] LABS: EOSINOPHILS % (AUTO) 0.4 % (0-6); HEMOGLOBIN 9.6 g/dl (12.0-16.0); LYMPHOCYTES # (AUTO) 0.3 X10'3 (1.1-4.8); LYMPHOCYTES % (AUTO) 4.9 % (21-51); PLATELET COUNT 183 X10'3 (140-440)
[2021-08-28 04:13] LABS: BASOPHILS % (AUTO) 0.1 % (0-1); HEMATOCRIT 29.1 % (35.0-45.0); MEAN CORPUSCULAR HEMOGLOBIN 30.4 PG (27.0-31.0); MEAN CORPUSCULAR VOLUME 91.9 FL (78-98); MEAN PLATELET VOLUME 8.1 FL (7.4-10.4); MONOCYTES # (AUTO) 0.3 X10'3 (0-0.9); MONOCYTES % (AUTO) 5.3 % (2-12); NEUTROPHILS # (AUTO) 5.8 X10'3 (1.8-7.7); NEUTROPHILS % (AUTO) 89.3 % (42-75); RED BLOOD COUNT 3.17 X10'6 (4.20-5.60); RED CELL DISTRIBUTION WIDTH 20.1 % (11.5-14.5); WHITE BLOOD COUNT 6.4 X10'3 (4.5-11.0)
[2021-08-28 06:00] VITALS: BP_SYST 109; BP_SYST 98; BP_DIAS 60; BP_DIAS 62
[2021-08-28] MEDS ORDERED: VANCOMYCIN IV ONE (07:00)
[2021-08-28] MEDS ORDERED: NS IV ONE (07:00)
[2021-08-28] MEDS: K and/or MAG REPLACEMENT MC SCH ×2 (08:00→20:00)
[2021-08-28] MEDS ORDERED: metoprolol tartrate 50mg tablet PO ONE (08:20)
[2021-08-28] MEDS: docusate sod 100mg capsule PO SCH ×2 (08:25→21:54)
[2021-08-28] MEDS: metoprolol succinate 25mg (24-HOUR) SR. Tablet PO SCH ×2 (08:25→21:57)
[2021-08-28] MEDS: vitamin B comp w/Vit. C tab 1 TAB TABLET PO SCH (08:25)
[2021-08-28] MEDS: hydroxychloroquine 200mg tablet PO SCH (08:25)
[2021-08-28] MEDS: pantoprazole 40mg Tablet.DR PO SCH ×2 (08:25→21:54)
[2021-08-28] MEDS: atorvastatin 20mg tablet PO SCH (08:25)
[2021-08-28] MEDS: piperacillin/tazo 3.375gm/50ml 50 ML IV SCH ×2 (08:25→21:54)
[2021-08-28] MEDS: lisinopril 20mg tablet PO SCH (08:25)
[2021-08-28] MEDS: isosorbide mononitrate 30mg tab.SR.24H PO SCH (08:26)
[2021-08-28] MEDS: calcitriol 0.25mcg capsule PO SCH (08:26)
[2021-08-28] MEDS: ticagrelor 90mg tablet PO SCH ×2 (08:26→21:55)
[2021-08-28] MEDS: amiodarone 200mg tablet PO SCH (08:26)
[2021-08-28] MEDS: furosemide 20MG tablet PO SCH (08:26)
[2021-08-28] MEDS: multivitamins, therapeutics tablet PO SCH (08:26)
[2021-08-28] MEDS: cloNIDine 0.1 mg tablet PO SCH ×2 (08:27→21:55)
[2021-08-28 11:00] VITALS: BP_SYST 100; BP_SYST 101; BP_DIAS 56; BP_DIAS 63
[2021-08-28 15:00] VITALS: BP 87/52
[2021-08-28] MEDS: mag hydrox/Alum hydrox/simeth 30ml oral suspension PO PRN ×2 (15:23→22:13)
[2021-08-28] MEDS: simethicone 80mg chew tab PO SCH ×2 (15:28→21:00)
[2021-08-28 18:00] VITALS: BP 104/62
[2021-08-28 22:00] VITALS: BP 101/64
--- NOTE | 2021-08-29 00:28 | NUR ---
Patient in room PCU 3020. I have received report from Radha CAVAZOS, and had the opportunity to ask questions and assume patient care.
[2021-08-29 02:00] VITALS: BP 98/55
[2021-08-29] MEDS: VANCOMYCIN LEVEL IV SCH (03:00)
[2021-08-29 03:22] LABS: ALANINE AMINOTRANSFERASE 9 U/L (12-78); ALBUMIN 1.6 G/DL (3.4-5.0); ALBUMIN/GLOBULIN RATIO 0.5 (1.1-1.5); ALKALINE PHOSPHATASE 80 IU/L (46-116); ANION GAP 14 (8-16); ASPARTATE AMINO TRANSFERASE 19 U/L (10-37); BILIRUBIN,TOTAL 0.5 MG/DL (0.1-1.0); BLOOD UREA NITROGEN 75 MG/DL (7-18); BUN/CREATININE RATIO 33.5 (6.6-38.0); CALCIUM 7.3 MG/DL (8.5-10.1); CHLORIDE 108 MMOL/L (99-107); CREATININE 2.24 MG/DL (0.40-0.90); GLUCOSE 151 MG/DL (70-104); MAGNESIUM 2.2 MG/DL (1.5-2.4); PHOSPHORUS 3.6 MG/DL (2.3-4.5); POTASSIUM 3.8 MMOL/L (3.5-5.1); SODIUM 141 MMOL/L (135-145); TOTAL CARBON DIOXIDE 18.7 MMOL/L (24-32); TOTAL PROTEIN 4.9 G/DL (6.4-8.2); eGFR 21 ML/MIN
[2021-08-29 05:43] LABS: BASOPHILS % (AUTO) 0.1 % (0-1); EOSINOPHILS # (AUTO) 0.1 X10'3 (0-0.9); EOSINOPHILS % (AUTO) 1.3 % (0-6); HEMATOCRIT 27.4 % (35.0-45.0); HEMOGLOBIN 9.3 g/dl (12.0-16.0); LYMPHOCYTES # (AUTO) 0.5 X10'3 (1.1-4.8); LYMPHOCYTES % (AUTO) 7.2 % (21-51); MEAN CORPUSCULAR HEMOGLOBIN 31.3 PG (27.0-31.0); MEAN CORPUSCULAR HGB CONC 33.9 g/dL (33.0-36.5); MEAN CORPUSCULAR VOLUME 92.5 FL (78-98); MEAN PLATELET VOLUME 7.8 FL (7.4-10.4); MONOCYTES # (AUTO) 0.4 X10'3 (0-0.9); MONOCYTES % (AUTO) 6.2 % (2-12); NEUTROPHILS # (AUTO) 5.4 X10'3 (1.8-7.7); NEUTROPHILS % (AUTO) 85.2 % (42-75); PLATELET COUNT 193 X10'3 (140-440); RED BLOOD COUNT 2.97 X10'6 (4.20-5.60); RED CELL DISTRIBUTION WIDTH 20.3 % (11.5-14.5); WHITE BLOOD COUNT 6.4 X10'3 (4.5-11.0)
[2021-08-29 06:00] VITALS: BP 90/50
[2021-08-29] MEDS: docusate sod 100mg capsule PO SCH ×2 (07:57→20:22)
[2021-08-29] MEDS: piperacillin/tazo 3.375gm/50ml 50 ML IV SCH ×2 (07:57→20:22)
[2021-08-29] MEDS: atorvastatin 20mg tablet PO SCH (07:58)
[2021-08-29] MEDS: multivitamins, therapeutics tablet PO SCH (07:58)
[2021-08-29] MEDS: hydroxychloroquine 200mg tablet PO SCH (07:58)
[2021-08-29] MEDS: vitamin B comp w/Vit. C tab 1 TAB TABLET PO SCH (07:58)
[2021-08-29] MEDS: amiodarone 200mg tablet PO SCH (07:58)
[2021-08-29] MEDS: pantoprazole 40mg Tablet.DR PO SCH ×2 (07:58→20:22)
[2021-08-29] MEDS: isosorbide mononitrate 30mg tab.SR.24H PO SCH (07:58)
[2021-08-29] MEDS: ticagrelor 90mg tablet PO SCH ×2 (07:58→20:22)
[2021-08-29] MEDS: normal saline 1000ml 1,000 ML IV SCH ×2 (07:59→20:24)
[2021-08-29] MEDS: furosemide 20MG tablet PO SCH (08:00)
[2021-08-29] MEDS: K and/or MAG REPLACEMENT MC SCH ×2 (08:00→20:00)
[2021-08-29] MEDS: lisinopril 20mg tablet PO SCH (08:00)
[2021-08-29] MEDS: simethicone 80mg chew tab PO SCH ×3 (08:00→20:23)
[2021-08-29] MEDS: cloNIDine 0.1 mg tablet PO SCH ×2 (08:00→20:22)
[2021-08-29] MEDS: metoprolol succinate 25mg (24-HOUR) SR. Tablet PO SCH ×3 (08:00→20:35)
[2021-08-29 11:00] VITALS: BP 95/55
[2021-08-29] MEDS: mag hydrox/Alum hydrox/simeth 30ml oral suspension PO PRN ×2 (11:02→16:26)
[2021-08-29] MEDS: ondansetron 4mg rapidly disintigrating tab PO PRN (11:02)
--- NOTE | 2021-08-29 13:51 | NUR ---
Reassessment: Pt continues on heart healthy diet w/ average 50-75% PO intake meals, though 100% intake last meal and appears pt's PO trends are improving per EMR. LBM 08/28, receiving routine colace per EMR. No nutrition intervention implemented at this time. Will continue to follow. Recommendations: 1) Liberalize to regular diet in view of lipid panel 2) Monitor need for ONS/additional protein 3) Continue routine MVI to assist with wound healing 4) Routine bowel care 5) Scaled weight this admit; weekly scaled weights thereafter Addendum: 08/29/21 at [address] Amended: Links added. Addendum: 08/29/21 at [address] I have reviewed assessment by international trade analyst
[2021-08-29 16:10] VITALS: BP 110/57
[2021-08-29] MEDS: HYDROcodone/acetaminophen 5mg/325mg tablet PO PRN ×2 (17:47→23:10)
[2021-08-29 18:00] VITALS: BP 112/62
[2021-08-29 20:25] VITALS: BP 90/50
[2021-08-30 01:35] VITALS: BP 108/60
[2021-08-30] MEDS: mag hydrox/Alum hydrox/simeth 30ml oral suspension PO PRN ×3 (04:14→12:42)
[2021-08-30 06:00] VITALS: BP 115/70
[2021-08-30 06:49] LABS: BASOPHILS % (AUTO) 0.2 % (0-1); EOSINOPHILS # (AUTO) 0.1 X10'3 (0-0.9); HEMATOCRIT 28.8 % (35.0-45.0); HEMOGLOBIN 9.5 g/dl (12.0-16.0); LYMPHOCYTES # (AUTO) 0.6 X10'3 (1.1-4.8); LYMPHOCYTES % (AUTO) 10.1 % (21-51); MEAN CORPUSCULAR HEMOGLOBIN 31.1 PG (27.0-31.0); MEAN CORPUSCULAR HGB CONC 32.8 g/dL (33.0-36.5); MEAN CORPUSCULAR VOLUME 94.8 FL (78-98); MEAN PLATELET VOLUME 7.7 FL (7.4-10.4); MONOCYTES # (AUTO) 0.4 X10'3 (0-0.9); NEUTROPHILS % (AUTO) 81.7 % (42-75); PLATELET COUNT 176 X10'3 (140-440); RED BLOOD COUNT 3.04 X10'6 (4.20-5.60); RED CELL DISTRIBUTION WIDTH 20.6 % (11.5-14.5); WHITE BLOOD COUNT 6.1 X10'3 (4.5-11.0)
[2021-08-30 07:12] LABS: ALANINE AMINOTRANSFERASE 9 U/L (12-78); ALBUMIN 1.7 G/DL (3.4-5.0); ALBUMIN/GLOBULIN RATIO 0.5 (1.1-1.5); ALKALINE PHOSPHATASE 79 IU/L (46-116); ANION GAP 12 (8-16); ASPARTATE AMINO TRANSFERASE 25 U/L (10-37); BILIRUBIN,TOTAL 0.5 MG/DL (0.1-1.0); BLOOD UREA NITROGEN 61 MG/DL (7-18); BUN/CREATININE RATIO 32.6 (6.6-38.0); CALCIUM 7.6 MG/DL (8.5-10.1); CHLORIDE 110 MMOL/L (99-107); CREATININE 1.87 MG/DL (0.40-0.90); GLUCOSE 108 MG/DL (70-104); MAGNESIUM 2.3 MG/DL (1.5-2.4); PHOSPHORUS 3.1 MG/DL (2.3-4.5); SODIUM 140 MMOL/L (135-145); TOTAL CARBON DIOXIDE 18.1 MMOL/L (24-32); TOTAL PROTEIN 5.1 G/DL (6.4-8.2); eGFR 26 ML/MIN
[2021-08-30 07:13] LABS: POTASSIUM 4.2 MMOL/L (3.5-5.1)
[2021-08-30 07:22] LABS: ANISOCYTOSIS 3+; PLATELET ESTIMATE NORMAL; POIKILOCYTOSIS 1+
[2021-08-30 07:23] LABS: BURR CELLS FEW
[2021-08-30] MEDS: piperacillin/tazo 3.375gm/50ml 50 ML IV SCH ×2 (07:26→20:33)
[2021-08-30] MEDS: ticagrelor 90mg tablet PO SCH ×2 (07:29→20:32)
[2021-08-30] MEDS: hydroxychloroquine 200mg tablet PO SCH (07:29)
[2021-08-30] MEDS: metoprolol succinate 25mg (24-HOUR) SR. Tablet PO SCH ×2 (07:30→20:32)
[2021-08-30] MEDS: vitamin B comp w/Vit. C tab 1 TAB TABLET PO SCH (07:30)
[2021-08-30] MEDS: simethicone 80mg chew tab PO SCH ×3 (07:31→20:32)
[2021-08-30] MEDS: multivitamins, therapeutics tablet PO SCH (07:31)
[2021-08-30] MEDS: atorvastatin 20mg tablet PO SCH (07:32)
[2021-08-30] MEDS: amiodarone 200mg tablet PO SCH (07:33)
[2021-08-30] MEDS: pantoprazole 40mg Tablet.DR PO SCH ×2 (07:33→20:31)
[2021-08-30] MEDS: isosorbide mononitrate 30mg tab.SR.24H PO SCH (07:33)
[2021-08-30] MEDS: lisinopril 20mg tablet PO SCH (07:33)
[2021-08-30] MEDS: calcitriol 0.25mcg capsule PO SCH (07:39)
[2021-08-30] MEDS: docusate sod 100mg capsule PO SCH ×2 (07:39→20:32)
[2021-08-30] MEDS: cloNIDine 0.1 mg tablet PO SCH ×2 (07:39→20:00)
[2021-08-30] MEDS: normal saline 1000ml 1,000 ML IV SCH ×2 (07:40→12:42)
[2021-08-30] MEDS: furosemide 20MG tablet PO SCH (07:48)
[2021-08-30] MEDS: K and/or MAG REPLACEMENT MC SCH ×2 (08:00→19:03)
[2021-08-30 10:00] VITALS: BP 111/68
[2021-08-30 14:00] VITALS: BP 104/62
[2021-08-30 18:00] VITALS: BP 101/42
--- NOTE | 2021-08-30 18:16 | NUR ---
Problems reprioritized. Patient report given, questions answered & plan of care reviewed with Chi.
[2021-08-30 22:00] VITALS: BP 130/72
[2021-08-31] MEDS: ondansetron 4mg rapidly disintigrating tab PO PRN ×2 (01:47→22:02)
[2021-08-31 02:00] VITALS: BP 118/64
[2021-08-31] MEDS: normal saline 1000ml 1,000 ML IV SCH ×3 (04:21→20:45)
[2021-08-31 06:00] VITALS: BP 114/70
[2021-08-31] MEDS: docusate sod 100mg capsule PO SCH ×2 (08:00→21:01)
[2021-08-31] MEDS: K and/or MAG REPLACEMENT MC SCH ×2 (08:00→18:46)
[2021-08-31] MEDS: multivitamins, therapeutics tablet PO SCH (08:04)
[2021-08-31] MEDS: atorvastatin 20mg tablet PO SCH (08:04)
[2021-08-31] MEDS: furosemide 20MG tablet PO SCH (08:04)
[2021-08-31] MEDS: amiodarone 200mg tablet PO SCH (08:05)
[2021-08-31] MEDS: isosorbide mononitrate 30mg tab.SR.24H PO SCH (08:05)
[2021-08-31] MEDS: simethicone 80mg chew tab PO SCH ×3 (08:05→21:00)
[2021-08-31] MEDS: vitamin B comp w/Vit. C tab 1 TAB TABLET PO SCH (08:05)
[2021-08-31] MEDS: metoprolol succinate 25mg (24-HOUR) SR. Tablet PO SCH ×2 (08:05→21:01)
[2021-08-31] MEDS: hydroxychloroquine 200mg tablet PO SCH (08:06)
[2021-08-31] MEDS: ticagrelor 90mg tablet PO SCH ×2 (08:06→21:00)
[2021-08-31] MEDS: piperacillin/tazo 3.375gm/50ml 50 ML IV SCH ×2 (08:19→21:02)
[2021-08-31] MEDS: pantoprazole 40mg Tablet.DR PO SCH ×2 (08:33→21:01)
[2021-08-31] MEDS: cloNIDine 0.1 mg tablet PO SCH ×2 (10:00→21:03)
[2021-08-31] MEDS: lisinopril 20mg tablet PO SCH (10:00)
[2021-08-31 11:00] VITALS: BP 99/84
[2021-08-31 15:00] VITALS: BP 112/63
[2021-08-31 18:00] VITALS: BP 125/62
[2021-08-31 22:00] VITALS: BP 126/69
[2021-08-31] MEDS: mag hydrox/Alum hydrox/simeth 30ml oral suspension PO PRN (22:02)
[2021-09-01 02:00] VITALS: BP 114/73
[2021-09-01 06:00] VITALS: BP 114/61
[2021-09-01] MEDS: K and/or MAG REPLACEMENT MC SCH (08:00)
[2021-09-01] MEDS: cloNIDine 0.1 mg tablet PO SCH (08:00)
[2021-09-01] MEDS: calcitriol 0.25mcg capsule PO SCH (09:12)
[2021-09-01] MEDS: docusate sod 100mg capsule PO SCH (09:12)
[2021-09-01] MEDS: atorvastatin 20mg tablet PO SCH (09:13)
[2021-09-01] MEDS: metoprolol succinate 25mg (24-HOUR) SR. Tablet PO SCH (09:13)
[2021-09-01] MEDS: hydroxychloroquine 200mg tablet PO SCH (09:13)
[2021-09-01] MEDS: lisinopril 20mg tablet PO SCH (09:14)
[2021-09-01] MEDS: piperacillin/tazo 3.375gm/50ml 50 ML IV SCH (09:15)
[2021-09-01] MEDS: normal saline 1000ml 1,000 ML IV SCH ×2 (09:15→16:24)
[2021-09-01] MEDS: ticagrelor 90mg tablet PO SCH (09:16)
[2021-09-01] MEDS: furosemide 20MG tablet PO SCH (09:17)
[2021-09-01] MEDS: isosorbide mononitrate 30mg tab.SR.24H PO SCH (09:17)
[2021-09-01] MEDS: amiodarone 200mg tablet PO SCH (09:17)
[2021-09-01] MEDS: simethicone 80mg chew tab PO SCH ×2 (09:20→15:35)
[2021-09-01] MEDS: multivitamins, therapeutics tablet PO SCH (09:21)
[2021-09-01] MEDS: vitamin B comp w/Vit. C tab 1 TAB TABLET PO SCH (09:22)
[2021-09-01] MEDS: pantoprazole 40mg Tablet.DR PO SCH (09:23)
--- NOTE | 2021-09-01 09:50 | NUR ---
Reassessment: Pt PO intake has slightly declined, now mostly 50% avg Heart Healthy meals since last nutrition assessment 08/29 and partially meeting needs. Per physician documentation pt has developed sepsis, recommend Ensure Enlive BIDBD to help meet additional protein needs. LBM 08/30, receiving routine colace per EMR. Will continue to follow and make recommendations as appropriate. Recommendations: 1) Liberalize to Regular diet in view of lipid panel 2) Ensure Enlive BIDBD; pending physician approval 3) Continue routine MVI to assist with wound healing 4) Routine bowel care 5) Scaled weight this admit; weekly scaled weights thereafter Addendum: 09/01/21 at [address] Amended: Links added. Addendum: 09/01/21 at [address] I have reviewed and agree with note by Hospital Plan AdministratorIntern. Antonia RD
[2021-09-01 11:06] VITALS: BP 98/69
[2021-09-01 15:00] VITALS: BP 108/63
--- NOTE | 2021-09-01 17:06 | NUR ---
Report to [facility]. IV access is maintained and [address] are in place, Pt. is awaiting transfer.
== END 2021-09-01 17:42 | DRG 862 ==
LOC: ER 10:01 → ED HOLD 14:50 → EDBEDREQ 21:33 → PCU 3S 08-26 00:06
PROVIDERS: ADMIT Family Medicine; ATTEND Family Medicine
PROC: 0W9F30Z Drainage of Abdominal Wall with Drainage Device, Percutaneous Approach (ICD-10-PCS; principal; 2021-08-26)
PROC: 0W9F30Z Drainage of Abdominal Wall with Drainage Device, Percutaneous Approach (ICD-10-PCS; 2021-08-26)
PROC: 0W9F30Z Drainage of Abdominal Wall with Drainage Device, Percutaneous Approach (ICD-10-PCS; 2021-08-26)
DX: T81.43XA Infection following a procedure, organ and space surgical site, initial encounter (principal); A41.51 Sepsis due to Escherichia coli [E. coli]; N17.0 Acute kidney failure with tubular necrosis; R18.8 Other ascites; N39.0 Urinary tract infection, site not specified; E87.1 Hypo-osmolality and hyponatremia; L02.211 Cutaneous abscess of abdominal wall; N18.9 Chronic kidney disease, unspecified; E78.5 Hyperlipidemia, unspecified; E86.0 Dehydration; G89.4 Chronic pain syndrome; I12.9 Hypertensive chronic kidney disease with stage 1 through stage 4 chronic kidney disease, or unspecified chronic kidney disease; S30.1XXA Contusion of abdominal wall, initial encounter; I25.10 Atherosclerotic heart disease of native coronary artery without angina pectoris; D64.9 Anemia, unspecified; G62.9 Polyneuropathy, unspecified; Y83.8 Other surgical procedures as the cause of abnormal reaction of the patient, or of later complication, without mention of misadventure at the time of the procedure; R58 Hemorrhage, not elsewhere classified; R00.0 Tachycardia, unspecified; I48.91 Unspecified atrial fibrillation; K21.9 Gastro-esophageal reflux disease without esophagitis; M06.9 Rheumatoid arthritis, unspecified; Z79.02 Long term (current) use of antithrombotics/antiplatelets; Z79.899 Other long term (current) drug therapy; Z80.3 Family history of malignant neoplasm of breast; Z87.440 Personal history of urinary (tract) infections; Z98.84 Bariatric surgery status; Z95.5 Presence of coronary angioplasty implant and graft; Z90.49 Acquired absence of other specified parts of digestive tract; Y92.89 Other specified places as the place of occurrence of the external cause; I95.9 Hypotension, unspecified
CPT/HCPCS: 10030; 36415; 49406; 74176; 80053; 80061; 80202; 83036; 83605; 83735; 84100; 84145; 85008; 85025; 86885; 86900; 86901; 87040; 87070; 87077; 87081; 87186; 93005; 96365; 96367; 97110; 97116; 97161; 97530; 99285; G0378; J2250; J2270; J2405; J2543; J3010; J3370; J7030; J7050

== ENCOUNTER 2021-11-02 11:50 | Day surgery (SDC) | payer MEDICARE, OTHER ==
[~2021-11-02] VITALS: Ht 152.4 cm; Wt 87.2 kg
[2021-11-02] VITALS (7 sets, daily range): BP systolic 128–156; BP diastolic 71–100
[~2021-11-02 11:50] MED LIST changes: -ADAL40PE SUBCUT; -CEPH250T PO; +LEVO500T90 PO; +LISI20TA28 PO; -LISI40TA13 PO; +MULT-1074 PO; +VITA-268 PO
[2021-11-02] MEDS ORDERED: LISI20TA28 PO (12:29)
[2021-11-02] MEDS ORDERED: ZINC50TA67 PO (12:29)
[2021-11-02] MEDS ORDERED: ASCO100T12 PO (12:29)
[2021-11-02] MEDS ORDERED: ERGO500041 PO (12:29)
[2021-11-02] MEDS ORDERED: LIDOcaine 1%/PF 5ML 10 MG/ML VIAL ONE (12:34)
== END 2021-11-02 14:15 | disposition home or self-care (01) ==
LOC: SSTAY O 11:50
PROVIDERS: ATTEND Radiology Vascular & Interventional Radiology
DX: E87.70 Fluid overload, unspecified (principal)
CPT/HCPCS: 49406; 87070; 87076; 87077; 87185; J3490; 76942

== ENCOUNTER 2023-08-16 07:13 | Day surgery (SDC) | payer MEDICARE, OTHER ==
[2023-08-16] VITALS (7 sets, daily range): BP systolic 94–133; BP diastolic 46–81; PULSE 73–96; RESP 7–17; TEMP 98.1; O2SAT 93–97
[~2023-08-16] VITALS: Ht 149.9 cm; Wt 76.1 kg
[~2023-08-16 07:13] MED LIST changes: +AMI200T PO; -AMIO200T61 PO; -APIX2.5T PO; +ASCO100T12 PO; +ERGO500041 PO; +HYDR200T73 PO; -HYDR200T84 PO; -LEVO500T90 PO; +ZINC50TA67 PO
[2023-08-16] MEDS ORDERED: cefazolin 2gm/D5W 100mL 100 ML IV ONE (07:50)
[2023-08-16] MEDS: VANCOMYCIN 1,500MG in NS 300ml IVPB IV ONE (08:25)
[2023-08-16 08:30] LABS: BASOPHILS % (AUTO) 0.9 % (0-1); EOSINOPHILS % (AUTO) 0.9 % (0-6); HEMATOCRIT 34.8 % (35.0-45.0); HEMOGLOBIN 11.7 g/dl (12.0-16.0); LYMPHOCYTES # (AUTO) 0.8 X10'3 (1.1-4.8); LYMPHOCYTES % (AUTO) 21.4 % (21-51); MEAN CORPUSCULAR HEMOGLOBIN 32.2 PG (27.0-31.0); MEAN CORPUSCULAR HGB CONC 33.6 g/dL (33.0-36.5); MEAN CORPUSCULAR VOLUME 95.6 FL (78-98); MEAN PLATELET VOLUME 8.7 FL (7.4-10.4); MONOCYTES # (AUTO) 0.4 X10'3 (0-0.9); MONOCYTES % (AUTO) 9.8 % (2-12); NEUTROPHILS # (AUTO) 2.5 X10'3 (1.8-7.7); PLATELET COUNT 99 X10'3 (140-440); RED BLOOD COUNT 3.64 X10'6 (4.20-5.60); RED CELL DISTRIBUTION WIDTH 13.8 % (11.5-14.5); WHITE BLOOD COUNT 3.8 X10'3 (4.5-11.0)
[2023-08-16] MEDS ORDERED: DIGO125T PO (08:56)
[2023-08-16] MEDS ORDERED: CLOP75TA34 (08:56)
[2023-08-16] MEDS ORDERED: BIOT1CAP3 PO (08:56)
[2023-08-16] MEDS ORDERED: APIX2.5T PO (08:56)
[2023-08-16] MEDS ORDERED: GABA300T28 PO (08:56)
[2023-08-16] MEDS ORDERED: TETR-74 OP (08:56)
[2023-08-16] MEDS ORDERED: OMEP20CA16 PO (08:56)
[2023-08-16] MEDS ORDERED: Calcium PO (08:56)
[2023-08-16 09:05] LABS: ALBUMIN 3.6 G/DL (3.4-5.0); ANION GAP 13 (8-16); BLOOD UREA NITROGEN 43 MG/DL (7-18); BUN/CREATININE RATIO 22.5 (10.0-20.0); CALCIUM 8.9 MG/DL (8.5-10.1); CHLORIDE 105 MMOL/L (99-107); CREATININE 1.91 MG/DL (0.40-0.90); GLUCOSE 101 MG/DL (70-104); MAGNESIUM 2.1 MG/DL (1.5-2.4); POTASSIUM 4.3 MMOL/L (3.5-5.1); SODIUM 140 MMOL/L (135-145); TOTAL CARBON DIOXIDE 22.3 MMOL/L (24-32); eCRCL 17 ML/MIN; eGFR 25 ML/MIN
[2023-08-16] MEDS ORDERED: fentaNYL/PF 50MCG/1 ML 2ML syringe ONE (09:07)
[2023-08-16] MEDS ORDERED: midazolam 1 mg/ML 2ml injection ONE ×2 (09:07→10:24)
[2023-08-16] MEDS ORDERED: LIDOCAINE 2%/EPI 1:100,000 inj. Multi-dose 20 ML VIAL ONE (09:07)
[2023-08-16] MEDS ORDERED: vancomycin 1,000mg inj ONE (09:07)
[2023-08-16 09:08] LABS: INR 1.1 INR
[2023-08-16] MEDS ORDERED: iohexol 350 MG/ML 50ML vial IV ONE (09:08)
[2023-08-16 09:14] LABS: PROTHROMBIN TIME 11.8 SECONDS (9.0-12.0)
[2023-08-16] MEDS ORDERED: LORazepam 1 MG tablet PO PRN (11:30)
[2023-08-16] MEDS ORDERED: HYDROcodone/acetaminophen 10/325mg tab PO PRN (11:30)
[2023-08-16] MEDS ORDERED: HYDROcodone/acetaminophen 5mg/325mg tablet PO PRN (11:30)
[2023-08-16] MEDS: normal saline 1000ml 1,000 ML IV SCH (12:06)
[2023-08-16] MEDS: pneumococcal 23-VAL P-sac vacc 25 mcg/0.5ml vial IMVAC ONE (12:07)
== END 2023-08-16 12:37 | disposition home or self-care (01) ==
LOC: SSTAY O 07:13
PROVIDERS: ATTEND Internal Medicine Cardiovascular Disease
DX: Z45.02 Encounter for adjustment and management of automatic implantable cardiac defibrillator (principal); I25.5 Ischemic cardiomyopathy; I11.0 Hypertensive heart disease with heart failure; I50.9 Heart failure, unspecified; E11.21 Type 2 diabetes mellitus with diabetic nephropathy; I25.118 Atherosclerotic heart disease of native coronary artery with other forms of angina pectoris; I48.91 Unspecified atrial fibrillation; E78.5 Hyperlipidemia, unspecified; K21.9 Gastro-esophageal reflux disease without esophagitis; I48.11 Longstanding persistent atrial fibrillation; I25.2 Old myocardial infarction; Z79.01 Long term (current) use of anticoagulants; Z79.899 Other long term (current) drug therapy; Z95.5 Presence of coronary angioplasty implant and graft
CPT/HCPCS: 33249; 36415; 71045; 80048; 83735; 85025; 85610; 90732; 93005; 99152; 99153; C1722; J2250; J3010; J3370; J7030; J7040; Q9967; A4565; A6258; C1895

== ENCOUNTER 2025-05-14 12:16 | Emergency (ER) | payer MEDICARE, OTHER ==
[~2025-05-14] VITALS: Ht 149.9 cm; Wt 77.3 kg
[~2025-05-14 12:16] MED LIST changes: -AMI200T PO; +APIX2.5T PO; -ASCO100T12 PO; -ATOR40TA PO; +BIOT1CAP3 PO; -CLON0.1T2 PO; +CLOP75TA34; +Calcium PO; +DIGO125T PO; +ERGO125018 PO; -ERGO500041 PO; +GABA300T28 PO; +OMEP20CA16 PO; -PANT40TA54 PO; -TICA90TA PO; -ZINC50TA67 PO; +[UNRECOGNIZED DRUG - CODE] OP
--- NOTE | 2025-05-14 12:55 | RADIOLOGY REPORT ---
EXAM: DI CHEST,SINGLE VIEW HISTORY: R/O SEPSIS COMPARISON: DI CHEST,SINGLE VIEW on DOS: 08/16/23, CHEST,SINGLE VIEW on DOS: 08/17/21 TECHNIQUE: Portable AP view of the chest was performed. FINDINGS: No pneumothorax, consolidative infiltrates, or pulmonary edema. The heart is enlarged. There is a left chest AICD. The right humeral head is high-riding consistent with significant rotator cuff tendinopathy. There are calcifications of the left rotator cuff, not fully imaged here. IMPRESSION: 1. No acute intrathoracic process. 2. Cardiomegaly and left chest AICD. 3. Secondary evidence of bilateral rotator cuff tendinopathy.
[2025-05-14 13:12] LABS: LEUKOCYTE ESTERASE ,URINE SMALL (Neg); NITRITES, URINE NEGATIVE (Neg); OCCULT BLOOD,URINE TRACE-INTACT (Neg)
[2025-05-14 13:14] LABS: MEAN PLATELET VOLUME 8.3 FL (7.4-10.4); RED CELL DISTRIBUTION WIDTH 16.7 % (11.5-14.5)
[2025-05-14 13:18] LABS: UA COLLECTION TYPE CLN CATCH MIDSTREAM
[2025-05-14 13:19] LABS: MUCUS STRANDS FEW /LPF (Neg); RENAL CELLS, URINE FEW /HPF; SQUAMOUS EPITHELIAL CELL,UR FEW /LPF (FEW)
[2025-05-14 13:40] LABS: CREATININE 1.60 MG/DL (0.40-0.90); TOTAL CARBON DIOXIDE 25.6 MMOL/L (24-32); eCRCL 19 ML/MIN; eGFR 31 ML/MIN
[2025-05-14] MEDS ORDERED: SULF1TAB49 PO (14:30)
--- NOTE | 2025-05-14 14:30 | Physician Documentation ---
History of Present Illness ~ Chief Complaint: Urinary Symptoms Stated Complaint: UTI Time Seen by MD: 13:28 OK to notify your PCP?: Yes Source: patient Mode of Arrival: POV Exam Limitations: no limitations HPI 79-year-old female here with pain with urination as well as urinary urgency and frequency which started this morning. She reports that she gets urinary tract infections often. She denies blood in her urine. Last UTI that was treated with antibiotics was in January. She denies fever, chills, nausea, vomiting, flank pain, vaginal symptoms. Medication Reconciliation Allergies: Coded Allergies: No Known Allergies (Unverified , 08/17/21) Scheduled Apixaban (Eliquis), 1 TAB PO BID, (Reported) Biotin (Biotin), Unknown Dose PO DAILY, (Reported) Calcitriol (Calcitriol), 1 CAP PO MWF, (Reported) Clopidogrel Bisulfate (Clopidogrel), 1 TAB DAILY, (Reported) Digoxin* (Lanoxin*), 1 TAB PO DAILY, (Reported) Ergocalciferol (Vitamin D2) (Vitamin D2), 1,000 UNIT PO Q7D, (Reported) Furosemide* (Lasix*), 1 TAB PO BID, (Reported) Gabapentin (Gabapentin ER), 1 CAP.SR PO TID, (Reported) Hydroxychloroquine Sulfate* (Plaquenil*), 1 TAB PO DAILY, (Reported) Isosorbide Mononitrate (Isosorbide Mononitrate Er), 1 TAB PO DAILY, (Reported) Lisinopril (Lisinopril), 5 MG PO DAILY, (Reported) Metoprolol Succinate* (Toprol Xl*), 0.5 TAB PO BID, (Reported) Multivitamin (Multi-Vitamin Daily), 1 TAB PO DAILY, (Reported) Nitroglycerin SL* (Nitrostat SL*), 1 TAB SL UD, (Reported) Omeprazole (Omeprazole), 40 MG PO DAILY, (Reported) Vitamin B Complex (B Complex), 1 TAB PO DAILY, (Reported) [Calcium ], 500 MG PO DAILY, (Reported) Scheduled PRN Tramadol Hcl (Tramadol Hcl), 1 TAB PO TID PRN for NERVE PAIN, (Reported) Miscellaneous Medications Tetrahydrozoline Hcl (Eye Drop), Unknown Dose OP, (Reported) Past Medical History Past Medical History: Peripheral Neuropathy, Coronary Artery Disease, Rheumatoid Arthritis Past Surgical History: angioplasty, gastric bypass Other Past Surgical History: Cardiac stent x 2 Alcohol Use: None Drug Use: none Lives In: Home Review of Systems All Other Systems at this time: Reviewed and Negative Physical Exam Vital Signs: Temperature: 98.3, Source: Oral, Heart Rate: 107, Respiratory Rate: 18, BP: 152/71, Pulse Oximetry: 98, Weight: 77.270 Oxygen Flow Rate: 0 Physical Exam General Appearance: Alert, WD/WN. NAD. HEENT: NCAT, PERRL, EOMI. Neck: Supple, trachea midline. Cardiovascular: RRR. No m/r/g. Lungs: CTAB. Breathing unlabored Abdomen: Soft, nondistended, mild tenderness over suprapubic area no guarding or rebound. No CVA tenderness. Extremities: Normal inspection. No edema. Skin: Warm/dry, normal color Neurological: Alert and oriented x4, normal gait. Psychiatric: Affect congruent with mood. Progress Results/Orders Results/Orders Vital Signs 05/14/25 12:20 Temp 98.3 Pulse 107 Resp 18 B/P (MAP) 152/71 Pulse Ox 98 O2 Flow Rate 0 Laboratory Tests Test 05/14/25 12:27 05/14/25 12:52 Urine Specimen Description Cln catch midstream Urine Color Yellow Urine Clarity Cloudy Urine pH 6.0 Urine Specific [place] 1.015 Urine Protein 100 H Urine Glucose (UA) Negative Urine Ketones Negative Urine Occult Blood Trace-intact Urine Nitrite Negative Urine Bilirubin Negative Urine Urobilinogen 0.2 Urine Leukocyte Esterase Small H Urine RBC 10-20 Urine WBC Tntc H Urine Squamous Epithelial Cells Few Urine Renal Cells Few Urine Bacteria 4+ Urine Mucus Few Urine Culture Indicated Indicated Volume Urine Centrifuged 10 ml Urine Comment White Blood Count 4.8 Red Blood Count 3.42 L Hemoglobin 9.8 L Hematocrit 29.8 L Mean Corpuscular Volume 87.2 Mean Corpuscular Hemoglobin 28.7 Mean Corpuscular Hemoglobin Concent 33.0 Red Cell Distribution Width 16.7 H Platelet Count 148 Mean Platelet Volume 8.3 Neutrophils (%) (Auto) 83.4 H Lymphocytes (%) (Auto) 7.9 L Monocytes (%) (Auto) 7.9 Eosinophils (%) (Auto) 0.1 Basophils (%) (Auto) 0.7 Neutrophils # (Auto) 4.0 Lymphocytes # (Auto) 0.4 L Monocytes # (Auto) 0.4 Eosinophils # (Auto) 0.0 Basophils # (Auto) 0.0 CBC Comment Sodium Level 141 Potassium Level 4.5 Chloride Level 106 Carbon Dioxide Level 25.6 Anion Gap 9 Blood Urea Nitrogen 33 H Creatinine 1.60 H Estimated GFR/1.73 m2 31 BUN/Creatinine Ratio 20.6 H Glucose Level 121 H Lactic Acid Level 1.6 Calcium Level 9.1 Total Bilirubin 0.6 Aspartate Amino Transf (AST/SGOT) 36 Alanine Aminotransferase (ALT/SGPT) 28 Alkaline Phosphatase 170 H Total Protein 7.8 Albumin 4.0 Globulin 3.8 Albumin/Globulin Ratio 1.1 Lipase 48 Procalcitonin < 0.05 Chemistry Comments Microbiology Date/Time Source Procedure Growth Status 05/14/25 13:20 Urine Clean Catch Midstream Urine Culture - Preliminary Culture received. Resulted Medical Decision Making Additional information obtaine: N/A Findings n/a Urinary Diff Dx:Considerations: Include: AAA, , Aortic dissection, Appendicitis, Bowel obstruction, Cholelithiasis, Choleangitis, DJD, Ectopic , Hepatitis, HNP, Impaction, Intrauterine , Musculoskeletal pain, Ovarian torsion, Pancreatitis, PID, Post-Op complication, Pyelonephritis, Renal failure, Strain, Urinary Obstruction, Urolithiasis, Urinary retention, UTI, Vaginitis, Other Genital Diff Dx:Considerations: Include: -Complete, - Incomplete, -Inevitable, Ablortion-Missed, -Threatened, Abruptio placentae, Bartholin abscess, Bartholin cyst, Blood loss anemia, Constipation, Cervicitis, Dsymenorrhea, Ectopic , Foreign body, Hormonal, Hid radenitis suppurativa, Intrauterine , Menorrhagia, Menometrorrhagia, Menstrual bleeding, Myomatous uterus, Perianal abscess, Physiologic discharge, Pinworms, PID, Placenta previa, , Precipitous Hct, Trauma, UTI, Vaginitis(osis)-Atrophic, Vaginitis, Vaginitis(osis)-Bacterial, Vaginitis(osis)- Candidal, Vaginitis(osis)-Contact, Vaginitis(osis)-Herpes, Vaginitis(osis)- Trich., Other Departure Time of Disposition: 14:28 Disposition: 01 HOME / SELF CARE / HOMELESS Impression: Primary Impression: Acute urinary tract infection Condition: Stable Discharge Instructions: Urinary Tract Infection, Adult Additional Instructions: Antibiotics sent to pharmacy, follow up with your primary care provider if fever, chills, vomiting or any other concerning symptoms return to the ER Referrals: NO PRIMARY CARE PROVIDER (PCP) Prescriptions Sulfamethoxazole/Trimethoprim (Bactrim Ds Tablet) 800 Mg-160 Mg Tablet 1 TAB PO Q12H for 5 Days, #10 TAB Prov: LOIS SCHWARZ 05/14/25 Education Educated: Patient Educated regarding: diagnosis, treatment, need for follow up Signature Scribe Signature: x Attestation: LOIS Mora May 14, 2025 14:30
[2025-05-14 14:46] VITALS: BP 125/71; PULSE 88; RESP 18; TEMP 97.3; O2SAT 100
== END 2025-05-14 14:50 | disposition home or self-care (01) ==
LOC: ER 12:17
DX: N39.0 Urinary tract infection, site not specified (principal); I25.10 Atherosclerotic heart disease of native coronary artery without angina pectoris; G62.9 Polyneuropathy, unspecified; Z95.5 Presence of coronary angioplasty implant and graft; Z79.899 Other long term (current) drug therapy
CPT/HCPCS: 36415; 71045; 80053; 81001; 83605; 83690; 84145; 85025; 87040; 87077; 87088; 87186; 99284

== ENCOUNTER 2025-05-16 09:24 | Emergency (ER) | payer MEDICARE, OTHER ==
[~2025-05-16] VITALS: Ht 149.9 cm; Wt 78.9 kg
[~2025-05-16 09:24] MED LIST changes: +SULF1TAB49 PO
--- NOTE | 2025-05-16 09:33 | ELECTROCARDIOGRAPH REPORT ---
[facility] Test Date: 2025-05-16 Test Time: 09:32:03 Pat Name: MATTHIEU TORRES Department: EMERGENCY ROOM Room: Gender: F Coupling Machine Operator: NATHANIEL : 1945 Requested By: KATERIN MUELLER Order Number: [id number] Reading MD: Dr. CHIDI Vazquez Measurements Intervals [place] Rate: 109 P: 0 [place]: 0 QRS: 69 QRSD: 86 T: 226 QT: 299 QTc: 403 Interpretive Statements Atrial fibrillation Anteroseptal infarct, old Borderline repolarization abnormality Electronically Signed On 05-18-2025 18:38:[address] CHIDI Vazquez Please click the below link to view image of tracing.
[2025-05-16 09:35] VITALS: TEMP 98
--- NOTE | 2025-05-16 09:48 | Physician Documentation ---
History of Present Illness ~ Chief Complaint: Chest Pain Stated Complaint: SOB Time Seen by MD: 09:40 HPI 79-year-old female presenting with chest pain She does report a history of [place] with stents. Over the past 2 days she has had pain. She states initially it was in her c entral chest but then moved down into her upper central abdomen. It is worse when she eats and drinks. She is having significant stomach acid problems. She also reports that her stomach feels distended. She also has tingling in her hands and feet. She thinks this is because she has run out of several of her medications including her gabapentin. She has been out of her Lasix as well for at least several days. No fevers or chills. No productive cough or shortness of breath. No vomiting or diarrhea. No new leg pain or swelling Medication Reconciliation Allergies: Coded Allergies: No Known Allergies (Unverified , 08/17/21) Scheduled Allopurinol* (Allopurinol*), 1 TAB PO DAILY Apixaban (Eliquis), 1 TAB PO BID, (Reported) Biotin (Biotin), Unknown Dose PO DAILY, (Reported) Calcitriol (Calcitriol), 1 CAP PO MWF, (Reported) Clopidogrel Bisulfate (Clopidogrel), 1 TAB DAILY, (Reported) Digoxin* (Lanoxin*), 1 TAB PO DAILY, (Reported) Ergocalciferol (Vitamin D2) (Vitamin D2), 1,000 UNIT PO Q7D, (Reported) Ezetimibe (Ezetimibe), 1 TAB PO DAILY Furosemide (Furosemide), 1 TAB PO BID Furosemide* (Lasix*), 1 TAB PO BID, (Reported) Gabapentin (Gabapentin ER), 1 CAP.SR PO TID, (Reported) Gabapentin (Gabapentin), 3 CAP PO BID Hydroxychloroquine Sulfate* (Plaquenil*), 1 TAB PO DAILY, (Reported) Isosorbide Mononitrate (Isosorbide Mononitrate Er), 1 TAB PO DAILY, (Reported) Lisinopril (Lisinopril), 5 MG PO DAILY, (Reported) Metoprolol Succinate* (Toprol Xl*), 0.5 TAB PO BID, (Reported) Multivitamin (Multi-Vitamin Daily), 1 TAB PO DAILY, (Reported) Nitroglycerin SL* (Nitrostat SL*), 1 TAB SL UD, (Reported) Omeprazole (Omeprazole), 40 MG PO DAILY, (Reported) Spironolactone (Spironolactone), 0.5 TAB PO DAILY Sucralfate (Sucralfate), 1 TAB PO Q6H Sulfamethoxazole/Trimethoprim (Bactrim Ds Tablet), 1 TAB PO Q12H Vitamin B Complex (B Complex), 1 TAB PO DAILY, (Reported) [Calcium ], 500 MG PO DAILY, (Reported) Scheduled PRN Tramadol Hcl (Tramadol Hcl), 1 TAB PO TID PRN for NERVE PAIN, (Reported) Miscellaneous Medications Tetrahydrozoline Hcl (Eye Drop), Unknown Dose OP, (Reported) Past Medical History Past Medical History: Peripheral Neuropathy, Coronary Artery Disease, Rheumatoid Arthritis Past Surgical History: angioplasty, gastric bypass Other Past Surgical History: Cardiac stent x 2 Alcohol Use: None Drug Use: none Lives In: Home Review of Systems Constitutional: Denies: fever Cardiovascular: Reports: chest pain Gastrointestinal: Reports: abdominal pain; Denies: vomiting, diarrhea Physical Exam Vital Signs: Temperature: 98.0, Source: Oral, Heart Rate: 109, Respiratory Rate: 16, BP: 146/79, Pulse Oximetry: 100, Weight: 78.900 Oxygen Flow Rate: 0 Physical Exam General: This is a pleasant and overall well-appearing older woman, family at bedside HEENT: Atraumatic, oropharynx appears dry Heart: Mild tachycardic, appears irregular, appears atrial fibrillation on the monitor, normal-appearing peripheral perfusion, no loud murmur Lungs: Diminished breath sounds bilateral, normal work of breathing, normal oxygen saturation on room air Abdomen: Soft, nondistended, mild discomfort on palpation in the epigastric region only, otherwise nontender, no rebound or guarding Extremities: Warm and well-perfused Neuro: Alert and oriented Psychiatric: Calm and cooperative with exam Progress Results/Orders Results/Orders Orders - KATERIN MUELLER MD Chest,Single View (05/16/25 09:27) Monitor (05/16/25 09:27) Saline Lock (05/16/25 09:27) Oxygen (05/16/25 09:27) Completed Orders - KATERIN MUELLER MD Chest,Single View (05/16/25 09:27) Cbc/Diff (05/16/25 09:27) BMP (05/16/25 09:27) PBNP (05/16/25 09:27) Electrocardiogram (05/16/25 09:27) Hs Troponin I W Calculations (05/16/25 09:27) Hs Troponin I W Calculations (05/16/25 11:27) Hs Troponin I W Calculations (05/16/25 12:27) Lipase (05/16/25 09:37) Medications Received in ER Medications (Trade) Dose Ordered Sig/Gifty Route PRN Reason Start Time Stop Time Status Last Admin Dose Admin (Maalox oral suspension) 30 ml ONCE ONCE PO 05/16/25 11:00 05/16/25 11:02 DC 05/16/25 11:16 30 ML (Xylocaine 2% Viscous 15mL cup) 10 ml ONCE ONCE MM 05/16/25 11:00 05/16/25 11:02 DC 05/16/25 11:16 10 ML (Protonix 40mg IV) 40 mg ONCE ONCE IV 05/16/25 11:00 05/16/25 11:05 DC 05/16/25 11:17 40 MG (Neurontin capsule) 300 mg ONCE ONCE PO 05/16/25 11:00 05/16/25 11:05 DC 05/16/25 11:17 300 MG Vital Signs 05/16/25 05/16/25 05/16/25 05/16/25 09:35 09:46 09:51 11:20 Temp 98.0 Pulse 109 101 102 Resp 16 16 16 16 B/P (MAP) 146/79 151/82 (105) 144/73 (96) Pulse Ox 100 100 100 O2 Flow Rate 0 0 0 05/16/25 12:41 Pulse 99 Resp 16 B/P (MAP) 138/74 (95) Pulse Ox 97 O2 Flow Rate 0 Laboratory Tests Test 05/16/25 09:37 05/16/25 11:19 05/16/25 12:37 White Blood Count 4.0 L Red Blood Count 3.56 L Hemoglobin 10.1 L Hematocrit 31.3 L Mean Corpuscular Volume 88.0 Mean Corpuscular Hemoglobin 28.5 Mean Corpuscular Hemoglobin Concent 32.3 L Red Cell Distribution Width 17.1 H Platelet Count 160 Mean Platelet Volume 8.3 Neutrophils (%) (Auto) 78.9 H Lymphocytes (%) (Auto) 12.1 L Monocytes (%) (Auto) 7.9 Eosinophils (%) (Auto) 0.4 Basophils (%) (Auto) 0.7 Neutrophils # (Auto) 3.2 Lymphocytes # (Auto) 0.5 L Monocytes # (Auto) 0.3 Eosinophils # (Auto) 0.0 Basophils # (Auto) 0.0 CBC Comment Sodium Level 138 Potassium Level 4.5 Chloride Level 103 Carbon Dioxide Level 24.5 Anion Gap 11 Blood Urea Nitrogen 28 H Creatinine 1.72 H Estimated GFR/1.73 m2 29 BUN/Creatinine Ratio 16.3 Glucose Level 129 H Calcium Level 9.4 Troponin I High Sensitivity 47 42 45 Pro-B-Type Natriuretic Peptide 7767 H Albumin 4.2 Lipase 45 Chemistry Comments Troponin I High Sens Percent Delta 7 Troponin I Hi Sens Absolute Change 3 EKG/XRAY/CT/US/VASC/MRI EKG : Additional Comment I personally interpreted the EKG and this shows: Atrial fibrillation, rate 109, QTC 403, no STEMI Chest X-Ray : Additional Comments I personally interpreted the x-ray, and it shows: No focal consolidation, no pneumothorax, no significant pulmonary edema Heart Score: Heart Score Response (Comments) Value History Slightly Suspicious 0 EKG Repolarization Disturb 1 Age >65 2 Risk Factors >3 or Hx ASHD 2 Troponin Normal limit 0 Total 5 Medical Decision Making Additional information obtaine: old records Findings Reviewed past admissions Heart Score: 5 Differential Dx:Considerations: Include: angina, aortic dissection, chest wall pain, cholelithiasis, CHF, costochondritis, gastritis, myocardial infarction Additional Information The patient presents with chest and abdominal pain. Per her history this seems more likely to be gastritis or esophagitis given her description. Her EKG shows atrial fibrillation which is normal for her. Her workup was otherwise unremarkable, no acute anemia, no elevation of the troponin, no evidence of congestive heart failure exacerbation. I doubt PE. She was given a GI cocktail with improvement of her symptoms. Some of her symptoms also seem related to having run out of her medications over the past several days. She was given a prescription for all of her missing medications. She will be discharged with an addition of sucralfate to help with her gastritis. She will follow up with the primary care doctor, otherwise return here for worsening symptoms. Departure Time of Disposition: 12:55 Disposition: 01 HOME / SELF CARE / HOMELESS Impression: Primary Impression: Gastritis Condition: Improved Discharge Instructions: Gastritis, Adult Referrals: NO PRIMARY CARE PROVIDER (PCP) Prescriptions Sucralfate (Sucralfate) 1 Gram Tablet 1 TAB PO Q6H for 30 Days, #120 TAB 0 Refills Prov: KATERIN MUELLER MD 05/16/25 Spironolactone (Spironolactone) 25 Mg Tablet 0.5 TAB PO DAILY for 10 Days, #5 TAB 0 Refills Prov: KATERIN MUELLER MD 05/16/25 Ezetimibe (Ezetimibe) 10 Mg Tablet 1 TAB PO DAILY for 10 Days, #10 TAB 0 Refills Prov: KATERIN MUELLER MD 05/16/25 Allopurinol* (Allopurinol*) 100 Mg Tablet 1 TAB PO DAILY for 10 Days, #10 TAB Prov: KATERIN MUELLER MD 05/16/25 Gabapentin (Gabapentin) 100 Mg Capsule 3 CAP PO BID for 10 Days, #30 CAP 0 Refills Prov: KATERIN MUELLER MD 05/16/25 Furosemide (Furosemide) 20 Mg Tablet 1 TAB PO BID for 10 Days, #20 TAB 0 Refills Prov: KATERIN MUELLER MD 05/16/25 Education Educated: Patient, Family Educated regarding: diagnosis, treatment, need for follow up Signature [place] Signature: na Attestation: KATERIN Major MD May 16, 2025 09:48
[2025-05-16 10:00] LABS: MEAN PLATELET VOLUME 8.3 FL (7.4-10.4); RED CELL DISTRIBUTION WIDTH 17.1 % (11.5-14.5)
--- NOTE | 2025-05-16 10:23 | RADIOLOGY REPORT ---
DI CHEST,SINGLE VIEW, HISTORY: CP COMPARISON: DI CHEST,SINGLE VIEW on DOS: 05/14/25, DI CHEST,SINGLE VIEW on DOS: 08/16/23, CHEST,SINGLE VIEW on DOS: 08/17/21 DI CHEST,SINGLE VIEW on DOS: 05/14/25, DI CHEST,SINGLE VIEW on DOS: 08/16/23, CHEST,SINGLE VIEW on DOS: 08/17/21 TECHNICAL DATA: 1 view of the chest was obtained. FINDINGS: Lines and tubes: None Cardiomediastinal silhouette: normal Pulmonary vasculature: normal Lung expansion: normal Lung airspace: normal Lung interstitium: normal Pleura: normal Pneumothorax: no Bones: Unremarkable Other: no IMPRESSION: No acute intrathoracic abnormality.
[2025-05-16] MEDS: LIDOcaine 2% Viscous 15ml cup MM ONE (11:16)
[2025-05-16] MEDS: mag hydrox/Alum hydrox/simeth 30ml oral suspension PO ONE (11:16)
[2025-05-16 11:49] LABS: CREATININE 1.72 MG/DL (0.40-0.90); PRO BRAIN NATRIURETIC PEPTIDE 7767 PG/ML (0-450); TOTAL CARBON DIOXIDE 24.5 MMOL/L (24-32); eCRCL 18 ML/MIN; eGFR 29 ML/MIN
[2025-05-16] MEDS ORDERED: ALLO100T PO (13:21)
[2025-05-16] MEDS ORDERED: SUCR1TAB PO (13:21)
[2025-05-16] MEDS ORDERED: EZET10TA80 PO (13:21)
[2025-05-16] MEDS ORDERED: SPIR25TA5 PO (13:21)
[2025-05-16] MEDS ORDERED: GABA-530 PO (13:21)
[2025-05-16] MEDS ORDERED: FURO20TA4 PO (13:21)
[2025-05-16 13:48] VITALS: BP 138/69; PULSE 82; RESP 16; O2SAT 94
== END 2025-05-16 13:49 | disposition home or self-care (01) ==
LOC: ER 09:26
DX: K29.70 Gastritis, unspecified, without bleeding (principal); I25.10 Atherosclerotic heart disease of native coronary artery without angina pectoris; I25.2 Old myocardial infarction; G62.9 Polyneuropathy, unspecified; I48.91 Unspecified atrial fibrillation; Z95.5 Presence of coronary angioplasty implant and graft; Z79.899 Other long term (current) drug therapy
CPT/HCPCS: 36415; 71045; 80048; 83690; 83880; 84484; 85025; 93005; 96374; 99285; J2470